=== PATIENT | female | born 1990 | race Caucasian/White ===

== ENCOUNTER → 2017-02-24 | Outpatient (CLI) | payer BC, OTHER ==
[~2017-02-24] MED LIST: DCS100C PO; HYDR-3720 PO; Ibuprofen PO; PREN1TAB19 PO
--- NOTE | 2017-02-24 14:55 | Diagnostic Imaging Report ---
First trimester OB ultrasound. INDICATION: Dating. FINDINGS: There is a normal-appearing single intrauterine . An embryo is seen with cardiac activity at 156 beats per minute. The crown-rump length is at 10 weeks and 3 days. KHRIS is 09/19/2017. No subchorionic hemorrhage is seen. The left ovary is 2.7 x 2.3 x 2.1 CM. The right ovary is obscured by bowel gas. IMPRESSION: Live single intrauterine . Dictated by: Dictated on workstation # [id number]
== END ==
LOC: RAD 14:03
PROVIDERS: ATTEND Family Medicine
DX: Z34.81 Encounter for supervision of other normal pregnancy, first trimester (principal); Z3A.10 10 weeks gestation of pregnancy
CPT/HCPCS: 76801

== ENCOUNTER → 2017-08-04 | Outpatient (CLI) | payer BC ==
[~2017-08-04] MED LIST changes: +DOCU100C37 PO; +FLUC200T5 PO; +IBUP-1780 PO; +OXYC-465 PO; +PNV1TABL81 PO
== END ==
LOC: LABNPT 12:44
PROVIDERS: ATTEND Obstetrics & Gynecology
DX: O14.03 Mild to moderate pre-eclampsia, third trimester (principal)
CPT/HCPCS: 82570; 84156

== ENCOUNTER 2017-08-14 15:14 | Outpatient (CLI) | payer BC ==
[~2017-08-14] VITALS: Ht 167.6 cm; Wt 107.5 kg
[~2017-08-14 15:14] MED LIST changes: -DOCU100C37 PO; -FLUC200T5 PO; -IBUP-1780 PO; -OXYC-465 PO; -PNV1TABL81 PO
[2017-08-14 15:20] VITALS: BP 138/78
[2017-08-14 15:58] LABS: BASOPHILS % (AUTO) 0 % (0-10); EOSINOPHILS % (AUTO) 0 % (0-10); HEMATOCRIT 37 % (35-52); HEMOGLOBIN 12.9 G/DL (11.5-16.0); LYMPHOCYTES # (AUTO) 1.3 X 10^3 (1.0-4.0); LYMPHOCYTES % (AUTO) 13 % (12-44); MEAN CORPUSCULAR HEMOGLOBIN 28 PG (25-34); MEAN CORPUSCULAR HGB CONC 35 G/DL (32-36); MEAN CORPUSCULAR VOLUME 81 FL (80-99); MEAN PLATELET VOLUME 10.3 FL (7.4-10.4); MONOCYTES # (AUTO) 0.8 X 10^3 (0.0-1.0); MONOCYTES % (AUTO) 9 % (0-12); NEUTROPHILS # (AUTO) 7.4 X 10^3 (1.8-7.8); NEUTROPHILS % (AUTO) 78 % (42-75); PLATELET COUNT 254 10^3/uL (130-400); RED BLOOD COUNT 4.58 10^6/uL (4.35-5.85); RED CELL DISTRIBUTION WIDTH 14.1 % (10.0-14.5); WHITE BLOOD COUNT 9.5 10^3/uL (4.3-11.0)
[2017-08-14 16:00] VITALS: BP 133/82
[2017-08-14 16:17] LABS: ALANINE AMINOTRANSFERASE 15 U/L (0-55); ALBUMIN 3.1 GM/DL (3.2-4.5); ALKALINE PHOSPHATASE 221 U/L (40-136); BILIRUBIN,TOTAL 0.4 MG/DL (0.1-1.0); BUN/CREATININE RATIO 10; CALCIUM 8.5 MG/DL (8.5-10.1); CARBON DIOXIDE 22 MMOL/L (21-32); CHLORIDE 108 MMOL/L (98-107); CREATININE SERUM 0.73 MG/DL (0.60-1.30); GFR ESTIMATED > 60; GLUCOSE 88 MG/DL (70-105); POTASSIUM 3.6 MMOL/L (3.6-5.0); SODIUM 139 MMOL/L (135-145); TOTAL PROTEIN 6.3 GM/DL (6.4-8.2)
[2017-08-14 16:30] VITALS: BP 130/76
[2017-08-14 16:30] LABS: BAND NEUTROPHILS 3 %; BASOPHILS % (MANUAL) 0 %; EOSINOPHILS % (MANUAL) 1 %; LYMPHOCYTES % (MANUAL) 18 %; METAMYELOCYTES % 1 %; MONOCYTES % (MANUAL) 4 %; NEUTROPHILS % (MANUAL) 73 %
[2017-08-14 16:31] LABS: RBC MORPH NORMAL
--- NOTE | 2017-08-17 11:57 | Physician Query-Final Dx ---
KETAN MAY 08/17/17 1157: Clinic Account Progress/Dx Physician Query: Please give diagnosis Date of Service August 14, 2017 at 15:14 TORO LOPEZ MD 08/17/17 1315: Clinic Account Progress/Dx DIAGNOSIS: Diagnosis KRISTEN KETAN MAY August 17, 2017 11:57 TORO LOPEZ MD August 17, 2017 13:15
== END 2017-08-14 16:50 | disposition home or self-care (01) ==
LOC: WSo 15:14 → LDRP 15:15 → 3RD 16:11 → LDRP 16:11 → WSo 16:50
PROVIDERS: ATTEND Obstetrics & Gynecology
DX: O13.3 Gestational [pregnancy-induced] hypertension without significant proteinuria, third trimester (principal); Z3A.34 34 weeks gestation of pregnancy
CPT/HCPCS: 36415; 80053; 82570; 83615; 84156; 84550; 85007; 85027; 99213

== ENCOUNTER → 2017-08-17 | Outpatient (CLI) | payer BC ==
[~2017-08-17] MED LIST changes: +DOCU100C37 PO; +FLUC200T5 PO; +IBUP-1780 PO; +OXYC-465 PO; +PNV1TABL81 PO
== END ==
LOC: LABNPT 12:17
PROVIDERS: ATTEND Obstetrics & Gynecology
DX: O14.03 Mild to moderate pre-eclampsia, third trimester (principal)
CPT/HCPCS: 82570; 84156

== ENCOUNTER → 2017-08-24 | Outpatient (CLI) | payer BC | LOC: LABNPT 11:13 | PROVIDERS: ATTEND Obstetrics & Gynecology | DX: O14.03 Mild to moderate pre-eclampsia, third trimester (principal) | CPT/HCPCS: 82570; 84156 ==

== ENCOUNTER 2017-08-28 05:39 | Outpatient (CLI) | payer BC ==
[~2017-08-28] VITALS: Ht 167.6 cm; Wt 107.5 kg
[~2017-08-28 05:39] MED LIST changes: -DOCU100C37 PO; -FLUC200T5 PO; -IBUP-1780 PO; -OXYC-465 PO; -PNV1TABL81 PO
[2017-08-28] MEDS ORDERED: FLUC200T5 PO (14:22)
[2017-08-28] MEDS ORDERED: PNV1TABL81 PO (14:22)
== END 2017-08-28 14:38 ==
LOC: PREOP 05:39
PROVIDERS: ATTEND Obstetrics & Gynecology
DX: Z01.818 Encounter for other preprocedural examination (principal); O34.211 Maternal care for low transverse scar from previous cesarean delivery; O99.013 Anemia complicating pregnancy, third trimester; D64.9 Anemia, unspecified

== ENCOUNTER → 2017-09-01 | Outpatient (CLI) | payer BC ==
[~2017-09-01] MED LIST changes: +DOCU100C37 PO; +FLUC200T5 PO; +IBUP-1780 PO; +OXYC-465 PO; +PNV1TABL81 PO
== END ==
LOC: LABNPT 11:08
PROVIDERS: ATTEND Obstetrics & Gynecology
DX: O14.03 Mild to moderate pre-eclampsia, third trimester (principal)
CPT/HCPCS: 82570; 84156

== ENCOUNTER 2017-09-02 06:10 | Inpatient (IN) | payer BC ==
[2017-09-02] VITALS (8 sets, daily range): BP systolic 128–164; BP diastolic 84–104
[~2017-09-02] VITALS: Ht 167.6 cm; Wt 109.3 kg
[~2017-09-02 06:10] MED LIST changes: +CITRIC ACID/SOB CIT (BICITRA) 30 ML UDC ONE; +CLINDAMYCIN 900 MG/50 ML IVPB 50 ML IV ONE; -DOCU100C37 PO; -IBUP-1780 PO; +METOCLOPRAMIDE INJ 10 MG/2 ML (REGLAN) ONE; -OXYC-465 PO; +raNItidine 50 MG/2 ML INJ (ZANTAC) ONE
--- OUTSIDE RECORDS SUMMARY | 2017-09-02 06:15 | XMS REPORT | Continuity of Care Document ---
Author Author [facility] Organization [facility] Address Unknown Phone Unavailable Allergies Active Description Code Type Severity Reaction Onset Reported/Identified Relationship to Patient Clinical Status Yes cefaclor [id number] Drug Allergy Unknown RASH 08/14/2017 Medications There is no data. 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81 ENCOUNTER FOR SUPRVSN OF NORMAL PREGNANC 03/12/2017 KALEIGH NUÑEZ MD, Ot Z3A.10 10 WEEKS GESTATION OF 07/31/2017 Ot 642.43 MILD/NOS PREECLAMP-ANTEP 07/31/2017 KALEIGH NUÑEZ MD, Ot Z34.81 ENCOUNTER FOR SUPRVSN OF NORMAL PREGNANC 07/31/2017 KALEIGH NUÑEZ MD, Ot Z3A.10 10 WEEKS GESTATION OF 07/31/2017 TORO LOPEZ MD, Ot O47.03 FALSE LABOR BEFORE 37 COMPLETED WEEKS OF 07/31/2017 TORO LOPEZ MD, Ot3A.33 33 WEEKS GESTATION OF 08/05/2017 TORO LOPEZ MD, Ot O47.03 FALSE LABOR BEFORE 37 COMPLETED WEEKS OF 08/05/2017 TORO LOPEZ MD, Ot3A.33 33 WEEKS GESTATION OF 08/06/2017 TORO LOPEZ MD, Ot O14.03 MILD TO MODERATE PRE-ECLAMPSIA, THIRD TR 08/07/2017 TORO LOPEZ MD, Ot O14.03 MILD TO MODERATE PRE-ECLAMPSIA, THIRD TR 08/18/2017 TORO LOPEZ MD, Ot O13.3 GESTATIONAL HTN W/O SIGNIFICANT PROTEINU 08/18/2017 TORO LOPEZ MD, Ot ZMattie.34 34 WEEKS GESTATION OF 08/18/2017 TORO LOPEZ MD, Ot O14.03 MILD TO MODERATE PRE-ECLAMPSIA, THIRD TR 08/19/2017 TORO LOPEZ MD, Ot O14.03 MILD TO MODERATE PRE-ECLAMPSIA, THIRD TR 08/19/2017 TORO LOPEZ MD, Ot O14.03 MILD TO MODERATE PRE-ECLAMPSIA, THIRD TR 08/20/2017 TORO LOPEZ MD, Ot O13.3 GESTATIONAL HTN W/O SIGNIFICANT PROTEINU 08/20/2017 TORO LOPEZ MD, Ot.34 34 WEEKS GESTATION OF 08/26/2017 TORO LOPEZ MD, Ot O14.03 MILD TO MODERATE PRE-ECLAMPSIA, THIRD TR Procedures Code Description Performed By Performed On 73.4 MEDICAL INDUCTION LABOR 09/20/2013 74.1 LOW CERVICAL 09/20/2013 Results Test Result Range CULTURE, GENITAL - 02/18/17 17:58 CULTURE, GENITAL SEE NOTE NRG SUREPATH PAP RFX HPV mRNA E6/E7 - 02/18/17 17:58 CLINICAL INFORMATION: NRG LMP: NRG PREV. PAP: NRG PREV. BX: NRG SOURCE: NRG STATEMENT OF ADEQUACY: NRG INTERPRETATION/RESULT: NRG SUPERVISOR UNDERWRITING CLERKS: NRG INFECTION: NRG Complete urinalysis with reflex to culture - 07/31/17 14:00 Urine color determination YELLOW NRG Urine clarity determination SLIGHTLY CLOUDY NRG Urine pH measurement by test strip 6 5-9 Specific gravity of urine by test strip 1.005 1.016- 1.022 Urine protein assay by test strip, semi-quantitative NEGATIVE NEGATIVE Urine glucose detection by automated test strip NEGATIVE NEGATIVE Erythrocytes detection in urine sediment by light microscopy 1+ NEGATIVE Urine ketones detection by automated test strip NEGATIVE NEGATIVE Urine nitrite detection by test strip NEGATIVE NEGATIVE Urine total bilirubin detection by test strip NEGATIVE NEGATIVE Urine urobilinogen measurement by automated test strip (mass/volume) NORMAL NORMAL Urine leukocyte esterase detection by dipstick 3+ NEGATIVE Automated urine sediment erythrocyte count by microscopy (number/high power field) [HPF] NRG Automated urine sediment leukocyte count by microscopy (number/high power field ) [HPF] NRG Bacteria detection in urine sediment by light microscopy MODERATE NRG Crystals detection in urine sediment by light microscopy NONE NRG Casts detection in urine sediment by light microscopy NONE NRG Mucus detection in urine sediment by light microscopy NEGATIVE NRG Complete urinalysis with reflex to culture NO NRG Bacterial urine culture - 07/31/17 14:00 Bacterial urine culture [id number] NRG COLONY COUNT 10,000/ML - 100,000/ML NRG FTX;REPORTABLE PLUS, NRG FREE TEXT ENTRY 2 MIXED GRAM POSITIVES <10,000/ML NRG Complete urinalysis with reflex to culture - 07/31/17 15:20 Urine color determination YELLOW NRG Urine clarity determination CLEAR NRG Urine pH measurement by test strip 6 5-9 Specific gravity of urine by test strip 1.020 1.016- 1.022 Urine protein assay by test strip, semi-quantitative NEGATIVE NEGATIVE Urine glucose detection by automated test strip NEGATIVE NEGATIVE Erythrocytes detection in urine sediment by light microscopy NEGATIVE NEGATIVE Urine ketones detection by automated test strip NEGATIVE NEGATIVE Urine nitrite detection by test strip NEGATIVE NEGATIVE Urine total bilirubin detection by test strip NEGATIVE NEGATIVE Urine urobilinogen measurement by automated test strip (mass/volume) NORMAL NORMAL Urine leukocyte esterase detection by dipstick NEGATIVE NEGATIVE Automated urine sediment erythrocyte count by microscopy (number/high power field) NONE NRG Automated urine sediment leukocyte count by microscopy (number/high power field ) NONE NRG Bacteria detection in urine sediment by light microscopy NONE NRG Squamous epithelial cells detection in urine sediment by light microscopy RARE NRG Crystals detection in urine sediment by light microscopy NONE NRG Casts detection in urine sediment by light microscopy NONE NRG Mucus detection in urine sediment by light microscopy NEGATIVE NRG Complete urinalysis with reflex to culture NO NRG Urine protein/creatinine mass ratio - 08/04/17 12:00 Urine protein measurement (mass/volume) 18 mg/dL 6-12 Urine creatinine measurement (mass/volume) 153 mg/dL 30- 125 Urine protein/creatinine mass ratio 0.12 NRG Urine protein/creatinine mass ratio - 08/14/17 15:40 Urine protein measurement (mass/volume) 14 mg/dL 6-12 Urine creatinine measurement (mass/volume) 94 mg/dL 30- 125 Urine protein/creatinine mass ratio 0.15 NRG Blood CBC with ordered manual differential panel - 08/14/17 15:49 Blood leukocytes automated count (number/volume) 9.5 10*3/uL 4.3-11.0 Blood erythrocytes automated count (number/volume) 4.58 10*6/uL 4.35-5.85 Venous blood hemoglobin measurement (mass/volume) 12.9 g/dL 11.5-16.0 Blood hematocrit (volume fraction) 37 % 35-52 Automated erythrocyte mean corpuscular volume 81 [foz_us] 80-99 Automated erythrocyte mean corpuscular hemoglobin (mass per erythrocyte) 28 pg 25-34 Automated erythrocyte mean corpuscular hemoglobin concentration measurement ( mass/volume) 35 g/dL 32-36 Automated erythrocyte distribution width ratio 14.1 % 10.0-14.5 Automated blood platelet count (count/volume) 254 10*3/uL 130-400 Automated blood platelet mean volume measurement 10.3 [foz_us] 7.4-10.4 Automated blood neutrophils/100 leukocytes 78 % 42-75 Automated blood lymphocytes/100 leukocytes 13 % 12-44 Blood monocytes/100 leukocytes 4 % NRG Automated blood eosinophils/100 leukocytes 0 % 0-10 Automated blood basophils/100 leukocytes 0 % 0-10 Blood neutrophils automated count (number/volume) 7.4 10*3 1.8-7.8 Blood lymphocytes automated count (number/volume) 1.3 10*3 1.0-4.0 Blood monocytes automated count (number/volume) 0.8 10*3 0.0-1.0 Automated eosinophil count 0.0 10*3/uL 0.0-0.3 Automated blood basophil count (count/volume) 0.0 10*3/uL 0.0-0.1 Manual blood segmented neutrophils/100 leukocytes 73 % NRG Blood band neutrophils/100 leukocytes 3 % NRG Manual blood lymphocytes/100 leukocytes 18 % NRG Manual eosinophils/100 leukocytes in nose 1 % NRG Manual blood basophils/100 leukocytes 0 % NRG Blood erythrocyte morphology finding identification NORMAL NRG Manual blood metamyelocytes/100 leukocytes 1 % NRG Comprehensive metabolic panel - 08/14/17 15:49 Serum or plasma sodium measurement (moles/volume) 139 mmol/L 135-145 Serum or plasma potassium measurement (moles/volume) 3.6 mmol/L 3.6-5.0 Serum or plasma chloride measurement (moles/volume) 108 mmol/L 98-107 Carbon dioxide 22 mmol/L 21-32 Serum or plasma anion gap determination (moles/volume) 9 mmol/L 5-14 Serum or plasma urea nitrogen measurement (mass/volume) 7 mg/dL 7-18 Serum or plasma creatinine measurement (mass/volume) 0.73 mg/dL 0.60-1.30 Serum or plasma urea nitrogen/creatinine mass ratio 10 NRG Serum or plasma creatinine measurement with calculation of estimated glomerular filtration rate > NRG Serum or plasma glucose measurement (mass/volume) 88 mg/dL 70-105 Serum or plasma calcium measurement (mass/volume) 8.5 mg/dL 8.5-10.1 Serum or plasma total bilirubin measurement (mass/volume) 0.4 mg/dL 0.1-1.0 Serum or plasma alkaline phosphatase measurement (enzymatic activity/volume) 221 U/L 40-136 Serum or plasma aspartate aminotransferase measurement (enzymatic activity/ volume) 14 U/L 5-34 Serum or plasma alanine aminotransferase measurement (enzymatic activity/volume ) 15 U/L 0-55 Serum or plasma protein measurement (mass/volume) 6.3 g/dL 6.4-8.2 Serum or plasma albumin measurement (mass/volume) 3.1 g/dL 3.2-4.5 Serum or plasma uric acid measurement (mass/volume) - 08/14/17 15:49 Serum or plasma uric acid measurement (mass/volume) 4.0 mg/dL 2.6-7.2 Lactate dehydrogenase 1 [enzymatic activity/volume] in serum or plasma - 15:49 Lactate dehydrogenase 1 [enzymatic activity/volume] in serum or plasma 199 U/L 125-220 Urine protein/creatinine mass ratio - 08/17/17 12:17 Urine protein measurement (mass/volume) 24 mg/dL 6-12 Urine creatinine measurement (mass/volume) 156 mg/dL 30- 125 Urine protein/creatinine mass ratio 0.16 NRG Urine protein/creatinine mass ratio - 08/24/17 11:13 Urine protein measurement (mass/volume) 33 mg/dL 6-12 Urine creatinine measurement (mass/volume) 197 mg/dL 30- 125 Urine protein/creatinine mass ratio 0.17 NRG Encounters ACCT No. Visit Date/Time Discharge Status Pt. Type Provider Facility Loc./Unit Complaint [id number] 2017 11:13:00 2017 23:59:59 CRYS Outpatient TORO LOPEZ MD [facility] [id number] 08/17/2017 12:17:00 08/17/2017 23:59:59 CRYS Outpatient TORO LOPEZ MD [id number] 08/14/2017 15:14:00 08/14/2017 16:50:00 JAMEE Outpatient TORO LOPEZ MD [facility] ASSESS FOR PREECLAMPSIA [id number] 08/04/2017 12:44:00 08/04/2017 23:59:59 TORO Flores MD [facility] [id number] 07/31/2017 13:52:00 07/31/2017 16:05:00 TORO Gleason MD [facility] RULE OUT LABOR [id number] 02/24/2017 14:03:00 02/24/2017 23:59:59 CLS Outpatient KALEIGH NUÑEZ MD [facility] RAD DATES [id number] 09/09/2013 11:36:00 09/22/2013 12:20:00 DIS Inpatient TORO LOPEZ MD [facility] LDRP PRECLAMPSIA [id number] 08/30/2013 11:15:00 08/31/2013 09:50:00 DIS Inpatient TORO LOPEZ MD [facility] WS OB EVAL TO IN , CRAMPING, SWELLING,VOMITING [id number] 07/31/2013 09:31:00 07/31/2013 10:43:00 DIS Outpatient TORO LOPEZ MD [facility] WSo BLEEDING [id number] 09/02/2013 10:40:00 Document Registration [id number] 02/18/2017 15:30:00 02/18/2017 23:59:59 CLS Outpatient MAGALI MOSQUEDA [facility] [id number] 02/18/2017 15:30:00 Document Registration
[2017-09-02] MEDS ORDERED: LACTATED RINGERS 1,000 ML IV PRN (06:26)
[2017-09-02] MEDS ORDERED: CLINDAMYCIN 900 MG/50 ML IVPB 50 ML IV ONE ×2 (06:30→07:15)
[2017-09-02] MEDS ORDERED: METOCLOPRAMIDE INJ 10 MG/2 ML (REGLAN) IV ONE (06:30)
[2017-09-02] MEDS ORDERED: CITRIC ACID/SOB CIT (BICITRA) 30 ML UDC PO ONE (06:30)
[2017-09-02] MEDS ORDERED: raNItidine 50 MG/2 ML INJ (ZANTAC) IV ONE (06:30)
[2017-09-02 06:54] LABS: BASOPHILS % (AUTO) 0 % (0-10); EOSINOPHILS # (AUTO) 0.1 10^3/uL (0.0-0.3); EOSINOPHILS % (AUTO) 1 % (0-10); HEMATOCRIT 37 % (35-52); HEMOGLOBIN 12.8 G/DL (11.5-16.0); LYMPHOCYTES # (AUTO) 2.2 X 10^3 (1.0-4.0); LYMPHOCYTES % (AUTO) 25 % (12-44); MEAN CORPUSCULAR HEMOGLOBIN 27 PG (25-34); MEAN CORPUSCULAR HGB CONC 34 G/DL (32-36); MEAN CORPUSCULAR VOLUME 79 FL (80-99); MEAN PLATELET VOLUME 10.9 FL (7.4-10.4); MONOCYTES # (AUTO) 0.7 X 10^3 (0.0-1.0); MONOCYTES % (AUTO) 8 % (0-12); NEUTROPHILS # (AUTO) 5.9 X 10^3 (1.8-7.8); NEUTROPHILS % (AUTO) 66 % (42-75); PLATELET COUNT 253 10^3/uL (130-400); RED CELL DISTRIBUTION WIDTH 14.4 % (10.0-14.5); WHITE BLOOD COUNT 8.9 10^3/uL (4.3-11.0)
[2017-09-02] MEDS ORDERED: fentaNYL INJECTION 100 MCG/2 ML AMP ONE (07:00)
[2017-09-02] MEDS ORDERED: CATHETER FLUSH 10 ML SYR IV PRN (07:00)
[2017-09-02] MEDS ORDERED: BUPIVACAINE SPINAL 0.75% (SENSORCAINE) 2 ML AMP ONE (07:05)
[2017-09-02] MEDS ORDERED: LIDOCAINE PF 2% 5 ML (XYLOCAINE) VIAL ONE (07:08)
[2017-09-02] MEDS ORDERED: D5 LR IV SOLUTION 1,000 ML IV SCH (07:10)
[2017-09-02] MEDS ORDERED: TETANUS,DIPTH,PERTUSS P/F (BOOSTRIX) 0.5 ML VIAL IM ONE (07:15)
[2017-09-02] MEDS ORDERED: MEASLES,MUMPS,RUBELLA 1 EA INJ SC ONE (07:15)
[2017-09-02] MEDS ORDERED: MEPERIDINE (DEMEROL) INJ 100 MG/ML IM PRN (07:15)
[2017-09-02] MEDS ORDERED: ONDANSETRON 4 MG/2 ML (SDV) Z0FRAN IVP PRN (07:15)
[2017-09-02] MEDS ORDERED: PROMETHAZINE INJ 25 MG/ML (PHENERGAN) AMP IM PRN (07:15)
--- NOTE | 2017-09-02 07:15 | Progress Note-Pre Operative ---
Pre-Operative Progress Note H&P Reviewed The H&P was reviewed, patient examined and no changes noted. Date Seen by Provider: September 02, 2017 Time Seen by Provider: 07:15 Date H&P Reviewed: September 02, 2017 Time H&P Reviewed: 07:15 Pre-Operative Diagnosis: 37-3/7 weeks' gestation with previous and TORO CHINCHILLA MD September 02, 2017 7:15 am
--- NOTE | 2017-09-02 07:18 | History & Physical ---
History and Physical Date Seen by Provider: September 02, 2017 Time Seen by Provider: 07:15 This patient is a 26-year-old A1 white female with a due date of September 09, 2017 at 37-3/7 weeks gestation. She been followed in clinic for progressively increasing blood pressures. She is admitted now for repeat delivery with PIH at 37-3/7 weeks gestation. She is on the of preeclampsia. Her first was complicated by severe preeclampsia. Her GBS culture was negative. She denies rupture membranes or bleeding. He is having occasional contractions. Allergies are to Ceclor Medications are vitamins and low-dose aspirin daily Medical social surgical obstetric and family histories are per the antepartum record HEENT exam is normal Neck is supple no lymphadenopathy no thyromegaly Abdomen is gravid soft nontender nondistended Extremities show no clubbing or cyanosis. There is no Homans sign. Pelvic exam is deferred Laboratory Tests Test 09/02/17 06:30 Range/Units White Blood Count 8.9 4.3-11.0 10^3/uL Red Blood Count 4.70 4.35-5.85 10^6/uL Hemoglobin 12.8 11.5-16.0 G/DL Hematocrit 37 35-52 % Mean Corpuscular Volume 79 L 80-99 FL Mean Corpuscular Hemoglobin 27 25-34 PG Mean Corpuscular Hemoglobin Concent 34 32-36 G/DL Red Cell Distribution Width 14.4 10.0-14.5 % Platelet Count 253 130-400 10^3/uL Mean Platelet Volume 10.9 H 7.4-10.4 FL Neutrophils (%) (Auto) 66 42-75 % Lymphocytes (%) (Auto) 25 12-44 % Monocytes (%) (Auto) 8 0-12 % Eosinophils (%) (Auto) 1 0-10 % Basophils (%) (Auto) 0 0-10 % Neutrophils # (Auto) 5.9 1.8-7.8 X 10^3 Lymphocytes # (Auto) 2.2 1.0-4.0 X 10^3 Monocytes # (Auto) 0.7 0.0-1.0 X 10^3 Eosinophils # (Auto) 0.1 0.0-0.3 10^3/uL Basophils # (Auto) 0.0 0.0-0.1 10^3/uL Assessment and plan term at 37-3/7 weeks' gestation with previous C- section and with PIH. Patient admitted now for repeat delivery. Surgical risk complication recovering follow-up all been fully discussed. Patient is ready to proceed. 37 3/7 weeks' gestation with previous and PIH Allergies and Home Medications Allergies Coded Allergies: cefaclor (Unverified Allergy, Unknown, RASH, 08/14/17) rash, bruising Home Medications Fluconazole 200 Mg Tablet, 200 MG PO WEEK, (Reported) Pnv No.122/Iron/Folic Acid 1 Each Tablet, 1 EACH PO DAILY, (Reported) Patient Home Medication List Home Medication List Reviewed: Yes Clinical Quality Measures DVT/VTE Risk/Contraindication: Risk Factor Score Per Nursin RFS Level Per Nursing on Admit: 2=Moderate TORO LOPEZ MD September 02, 2017 7:18 am
[2017-09-02] MEDS ORDERED: D5 LR IV SOLUTION 1,000 ML IV ONE (07:20)
[2017-09-02] MEDS: KETOROLAC 30 MG/ML VIAL IVP SCH ×3 (09:48→22:08)
[2017-09-02] MEDS: oxyCODONE/APAP 5/325MG (PERCOCET 5) TABLET PO PRN ×4 (09:53→23:55)
[2017-09-02] MEDS: OXYTOCIN/NORMAL SALINE 500 ML IV SCH ×2 (10:13→11:41)
[2017-09-02] MEDS: DOCUSATE SODIUM 100 MG (COLACE) CAP PO SCH ×2 (10:13→19:45)
[2017-09-02] MEDS ORDERED: diphenhydrAMINE 50 MG/ML INJ (BENADRYL) IV PRN (13:15)
[2017-09-02] MEDS ORDERED: ONDANSETRON 4 MG/2 ML (SDV) Z0FRAN IV PRN (13:15)
[2017-09-02] MEDS ORDERED: NALOXONE 0.4 MG/ML 1 ML (NARCAN) VIAL IV PRN (13:15)
--- NOTE | 2017-09-02 15:32 | OPERATIVE REPORT ---
DATE OF SERVICE: 09/02/2017 PREOPERATIVE DIAGNOSES: A 38 and 3/7 weeks gestation with PIH and previous . POSTOPERATIVE DIAGNOSES: A 38 and 3/7 weeks gestation with PIH and previous . OPERATIVE PROCEDURE: Repeat low transverse delivery of a viable female with Apgars of 8 and 9 at 1 and 5 minutes respectively, weight of 6 pounds 6 ounces. Cord arterial blood pH was 7.29 and a time of 07:47. OPERATIVE DESCRIPTION: With the patient in the supine position under satisfactory spinal anesthesia, she was prepped and draped in the usual fashion for abdominal surgery. A repeat Pfannenstiel incision was made through the skin with a scalpel. The patient's abdomen entered in the usual manner. Bladder retractor placed into position and a clean scalpel used to make a 4 cm hysterotomy incision transversely across loading segment. Copious clear fluid was released on amniotomy. De La Cruz forceps were applied to facilitate delivery of a vigorous viable female from the uterine incision after the incision had been extended bluntly. The infant was bulb suctioned on delivery of the head and again on completion of delivery. Umbilical cord was doubly clamped and cut and the passed to Janine Paredes, the pediatric nurse in attendance for delivery. Cord bloods were obtained. The placenta delivered spontaneously Chávez. It was somewhat small and atretic with a very small short umbilical cord, but otherwise appeared normal. The uterus was exteriorized. The interior wiped clean with a wet laparotomy sponge. Uterine incision closed with a running locked suture of 2-0 Vicryl. Hemostasis was complete. The uterus was returned to the abdominal cavity. There were some filmy adhesions to the posterior surface of the uterus involving omentum, bowel and the ovary. These were taken free and were completely hemostatic. With the uterus returned in situ and sponge and needle counts correct and hemostasis assured, the anterior parietal peritoneum was closed with a running suture of 2-0 Vicryl. The rectus muscles were closed with that suture as well. Rectus fascia was closed with two sutures of 2-0 Vicryl, subcutaneous tissue was closed with 2-0 Vicryl and the skin was stapled. Sponge and needle counts were correct at the end of procedure. Estimated blood loss for procedure was around 500 mL. The patient tolerated the procedure well and was transferred to the recovery room in stable condition. The infant had been taken stable to the full term nursery in the care of Janine Paredes. Job ID: [id number] DocumentID: [id number] Dictated Date: 09/02/2017 08:09:59 Patient Services Clerk Date: 09/02/2017 15:31:55 Dictated By: TORO LOPEZ MD
[2017-09-03 04:05] VITALS: BP 140/97
[2017-09-03] MEDS: KETOROLAC 30 MG/ML VIAL IVP SCH (04:10)
--- NOTE | 2017-09-03 08:04 | Progress Note-Standard ---
Standard Progress Note Progress Notes/Assess & Plan Date Seen by Provider: September 03, 2017 Time Seen by Provider: 08:02 Progress/Assessment & Plan This patient is without complaint except for relatively poor pain control. We discussed pain management and we'll increase the dose of the narcotic and the Percocet. She is ambulating, voiding, tolerating by mouth well, denies chest pain, denies shortness of breath, denies headache, denies nausea vomiting. Vital Signs Date Time Temp Pulse Resp B/P (MAP) Pulse Ox O2 Delivery O2 Flow Rate FiO2 09/03/17 04:05 97.7 92 18 140/97 (111) 97 09/02/17 23:55 97.2 79 18 143/101 (115) 97 09/02/17 19:40 97.7 80 18 143/102 (116) 98 09/02/17 16:34 98.4 82 18 136/101 (113) 97 Room Air 09/02/17 12:45 98.8 84 18 128/86 (100) 97 Room Air 09/02/17 09:54 98.6 71 18 143/96 (112) 99 Room Air I & O 09/03/17 07:00 Intake Total 3450 ml Output Total 2450 ml Balance 1000 ml Vital signs are stable. Patient is slightly elevated but acceptable at this point. Patient is afebrile. The abdomen is benign. Patient is nursing and the surgical incision was not examined Extremities show clubbing cyanosis. There is no Homans sign. There is fairly notable pretibial pitting edema but that is not new for this patient. Assessment and plan day number 1/postoperative day number 1 status post repeat doing well. Blood pressures remained slightly elevated but again are acceptable at this point. We have adjusted her pain medication and anticipate better pain control. Plan is for routine convalescence care today and likely discharge home tomorrow TORO LOPEZ MD September 03, 2017 8:04 am
--- NOTE | 2017-09-03 08:44 | Anesthesia-Regional Post-Op ---
Regional Patient Condition Mental Status: Alert, Oriented x3 Circulation: Same as Pre-Op Headache: Absent Sensation: Full Recovery Motor Block: Absent Post Op Complications Complications None Follow Up Care/Instructions Patient Instructions None needed. Anesthesia/Patient Condition Patient is doing well, no complaints, stable vital signs, no apparent adverse anesthesia problems. No complications reported per nursing. ALYSSA ZIMMERMAN CRNA September 03, 2017 08:44
[2017-09-03 09:10] VITALS: BP 140/102
[2017-09-03] MEDS: IBUPROFEN 800 MG (MOTRIN) TAB PO SCH ×3 (09:18→20:12)
[2017-09-03] MEDS: DOCUSATE SODIUM 100 MG (COLACE) CAP PO SCH ×2 (09:19→20:10)
[2017-09-03] MEDS: oxyCODONE/APAP 10/325MG (PERCOCET 10) TABLET PO PRN ×3 (09:20→21:33)
[2017-09-03 14:49] VITALS: BP 142/96
[2017-09-03 20:10] VITALS: BP 149/102
[2017-09-04 03:20] VITALS: BP 136/94
[2017-09-04] MEDS: oxyCODONE/APAP 10/325MG (PERCOCET 10) TABLET PO PRN ×2 (03:21→08:57)
[2017-09-04] MEDS: IBUPROFEN 800 MG (MOTRIN) TAB PO SCH ×2 (03:21→08:57)
[2017-09-04] MEDS ORDERED: IBUP-1780 PO (07:04)
[2017-09-04] MEDS ORDERED: OXYC-465 PO (07:04)
[2017-09-04] MEDS ORDERED: DOCU100C37 PO (07:04)
--- NOTE | 2017-09-04 07:06 | Discharge Instructions ---
Discharge Instructions Discharge Medications New, Converted or Re-Newed RX: RX on Chart Patient Instructions Patient Instructions: As directed Return to The Hospital For: As directed Activity & Diet Discharge Diet: No Restrictions Activity as Tolerated: No Orders-Post D/C & Referrals Follow Up Appt: RTC 1 week for incision check. Call to make follow up appt. for patient in 4 weeks. Wound Care: Remove evelyne, apply benzoin and steri strips. Activity Per routine post instructions. Please call in RX to patient pharmacy. Diet as tolerated Patient may shower or tub bathe as desired. Continue home meds TORO LOPEZ MD Sep 04, 2017 7:06 am
--- NOTE | 2017-09-04 07:08 | Progress Note-Standard ---
Standard Progress Note Progress Notes/Assess & Plan Date Seen by Provider: Sep 04, 2017 Time Seen by Provider: 07:07 Progress/Assessment & Plan This patient is without complaint except for relatively poor pain control. We discussed pain management and we'll increase the dose of the narcotic and the Percocet. She is ambulating, voiding, tolerating by mouth well, denies chest pain, denies shortness of breath, denies headache, denies nausea vomiting. Vital Signs Date Time Temp Pulse Resp B/P (MAP) Pulse Ox O2 Delivery O2 Flow Rate FiO2 09/03/17 04:05 97.7 92 18 140/97 (111) 97 09/02/17 23:55 97.2 79 18 143/101 (115) 97 09/02/17 19:40 97.7 80 18 143/102 (116) 98 09/02/17 16:34 98.4 82 18 136/101 (113) 97 Room Air 09/02/17 12:45 98.8 84 18 128/86 (100) 97 Room Air 09/02/17 09:54 98.6 71 18 143/96 (112) 99 Room Air I & O 09/03/17 07:00 Intake Total 3450 ml Output Total 2450 ml Balance 1000 ml Vital signs are stable. Patient is slightly elevated but acceptable at this point. Patient is afebrile. The abdomen is benign. Patient is nursing and the surgical incision was not examined Extremities show clubbing cyanosis. There is no Homans sign. There is fairly notable pretibial pitting edema but that is not new for this patient. Assessment and plan day number 1/postoperative day number 1 status post repeat doing well. Blood pressures remained slightly elevated but again are acceptable at this point. We have adjusted her pain medication and anticipate better pain control. Plan is for routine convalescence care today and likely discharge home tomorrow September 04, 2017 Patient without complaint she is ambulating, voiding, tolerating by mouth well, has good pain control. Patient is requesting discharge home. Vital Signs Date Time Temp Pulse Resp B/P (MAP) Pulse Ox O2 Delivery O2 Flow Rate FiO2 09/04/17 03:20 97.6 83 18 136/94 (108) 98 Room Air 09/03/17 20:10 97.6 81 18 149/102 (118) 99 Room Air 09/03/17 14:49 85.0 85 18 142/96 (111) 98 Room Air 09/03/17 09:10 98.4 100 18 140/102 (115) 98 Room Air Vital signs are stable. Patient afebrile. The abdomen is benign. The surgical incision is clean dry and intact. Extremities show no clubbing or cyanosis. There is no Homans sign. The pretibial pitting edema as notable stable and not abnormal. Assessment and plan postoperative day number 2 status post repeat doing well. Plan is for discharge home with follow-up in clinic Final Diagnosis Repeat delivery TORO LOPEZ MD Sep 04, 2017 7:08 am
[2017-09-04 08:57] VITALS: BP 138/91
[2017-09-04] MEDS: DOCUSATE SODIUM 100 MG (COLACE) CAP PO SCH (08:57)
[2017-09-04] MEDS ORDERED: TETANUS,DIPTH,PERTUSS P/F (BOOSTRIX) 0.5 ML VIAL IM ONE (10:59)
== END 2017-09-04 11:55 | disposition home or self-care (01) | DRG 766 ==
LOC: LDRP 06:10
PROVIDERS: ADMIT Obstetrics & Gynecology; ATTEND Obstetrics & Gynecology
PROC: 10D00Z1 Extraction of Products of Conception, Low, Open Approach (ICD-10-PCS; principal; 2017-09-02 07:22)
DX: O13.4 Gestational [pregnancy-induced] hypertension without significant proteinuria, complicating childbirth (principal); O34.211 Maternal care for low transverse scar from previous cesarean delivery; Z37.0 Single live birth; Z3A.28 28 weeks gestation of pregnancy; Z23 Encounter for immunization
CPT/HCPCS: 36415; 82570; 84156; 85025; 86850; 86900; 86901; 88307; 90715

== ENCOUNTER 2018-02-27 18:20 | Emergency (ER) | payer BC ==
[~2018-02-27] VITALS: Ht 165.1 cm; Wt 95.3 kg
[~2018-02-27 18:20] MED LIST changes: -CITRIC ACID/SOB CIT (BICITRA) 30 ML UDC ONE; -CLINDAMYCIN 900 MG/50 ML IVPB 50 ML IV ONE; +DOCU100C37 PO; +IBUP-1780 PO; -METOCLOPRAMIDE INJ 10 MG/2 ML (REGLAN) ONE; +OXYC-465 PO; -raNItidine 50 MG/2 ML INJ (ZANTAC) ONE
--- OUTSIDE RECORDS SUMMARY | 2018-02-27 18:54 | XMS REPORT ---
Author Author KALEIGH NUÑEZ Organization [facility] Address [address] [place] [address] Care Team Providers Care Fact Checker Name Role Phone KALEIGH NUÑEZ Unavailable PROBLEMS Unknown Problems ALLERGIES No Information ENCOUNTERS Encounter Location Date Diagnosis [facility] [id number] [place] [address] [phone][address] [phone] Mar, 15 weeks gestation of Z3A.15 [place] [address] [place] [id number] [place] [address] [phone]- [phone] Feb, [place] [address] [address] [id number] [place] [address] [phone]- [phone] Feb, Normal in multigravida Z34.80 [facility] [id number] [place] [address] [phone]- [phone] Feb, [facility] [id number] [place] [address] [phone]- [phone] Feb, [facility] [id number], [place] [address] Feb, [facility] [id number] [place] [address] [phone]- [phone] Nov, IMMUNIZATIONS No Known Immunizations SOCIAL HISTORY Never Assessed REASON FOR VISIT PLAN OF CARE VITAL SIGNS MEDICATIONS No Known Medications RESULTS No Results PROCEDURES No Known procedures INSTRUCTIONS MEDICATIONS ADMINISTERED No Known Medications MEDICAL (GENERAL) HISTORY Type Description Date Surgical History 09/2013
--- OUTSIDE RECORDS SUMMARY | 2018-02-27 18:54 | XMS REPORT ---
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, Active Insect stings anaphylaxis Non Drug Allergy Mar, Active ENCOUNTERS Encounter Location Date Diagnosis [place] [address] [phone] Mar, 15 weeks gestation of Z3A.15 [place] [address] [place] [id number] [place] [address] [phone] Feb, [place] [address] [place] [id number] [place] [address] [phone]- [phone] Feb, Normal in multigravida Z34.80 [place] [id number] [place] [address] [phone]- [phone] 14 Feb, 2017 [place] [address] [id number] [place] [address] [phone] Feb, [place] [address] [place] [id number] [place] [address] [phone] Feb, [place] [address] [place] [address] [id number] [place] [address] [phone]- [phone] Nov, IMMUNIZATIONS No Known Immunizations SOCIAL HISTORY Never Assessed REASON FOR VISIT OB f/u - 4 wk STeposte CCMA , pt states she has been getting headaches more frequently PLAN OF CARE Activity Details Follow Up 4 Weeks Reason: VITAL SIGNS Height 65.5 in 2017-03-18 Weight 216.4 lbs 2017-03-18 Temperature 98.1 degrees Fahrenheit 2017-03-18 Heart Rate 108 bpm 2017-03-18 Respiratory Rate 20 2017-03-18 BMI 35.463 kg/m2 2017-03-18 Blood pressure systolic 130 mmHg 2017-03-18 Blood pressure diastolic 72 mmHg 2017-03-18 MEDICATIONS Medication Instructions Dosage Frequency Start Date End Date Duration Status Vitamin and Mineral 28-0.8 MG Active RESULTS Name Result Date Reference Range UA OB DIP (IN HOUSE) 2017-03-18 Glucose Negative Protein Negative PROCEDURES Procedure Date Ordered Result Body Site URINE-NO MICRO Mar 18, 2017 INSTRUCTIONS MEDICATIONS ADMINISTERED No Known Medications MEDICAL (GENERAL) HISTORY Type Description Date Surgical History 09/2013
--- OUTSIDE RECORDS SUMMARY | 2018-02-27 18:55 | XMS REPORT ---
Author Author KALEIGH NUÑEZ Organization [facility] Address [address] [place] [address] Care Team Providers Care General Farmworker Name Role Phone KALEIGH NUÑEZ Unavailable PROBLEMS Unknown Problems ALLERGIES No Information ENCOUNTERS Encounter Location Date Diagnosis [facility] [id number] [place] [address] [phone]- [phone] Mar, 15 weeks gestation of Z3A.15 [place] [address] [place] [id number] [place] [address] [phone] Feb, [place] [address] [place] [id number] [place] [address] [phone] Feb, Normal in multigravida Z34.80 [facility] [address] [id number] [place] [address] [phone] Feb, [facility] [id number] [place] [address] [phone] Feb, [facility] [address], [place] [address] Feb, [facility] [address] [id number] [place] [address] [phone] Nov, IMMUNIZATIONS No Known Immunizations SOCIAL HISTORY Never Assessed REASON FOR VISIT PLAN OF CARE VITAL SIGNS MEDICATIONS No Known Medications RESULTS No Results PROCEDURES No Known procedures INSTRUCTIONS MEDICATIONS ADMINISTERED No Known Medications MEDICAL (GENERAL) HISTORY Type Description Date Surgical History 09/2013
--- OUTSIDE RECORDS SUMMARY | 2018-02-27 18:55 | XMS REPORT | Continuity of Care Document ---
Author Author [facility] Organization [facility] Address Unknown Phone Unavailable Allergies Active Description Code Type Severity Reaction Onset Reported/Identified Relationship to Patient Clinical Status Yes cefaclor [id number] Drug Allergy Unknown RASH 08/14/2017 Medications There [...] NEC 09/22/2013 TORO LOPEZ MD Ot V06.1 [id number], COMBINED [ 09/22/2013 TORO LOPEZ MD Ot V06.4 [id number] 09/22/2013 TORO LOPEZ MD Ot V27.0 DELIVER-SINGLE [...] COMPLETED WEEKS OF 08/05/2017 TORO LOPEZ MD, Ot.33 33 WEEKS GESTATION OF 08/06/2017 TORO LOPEZ MD, Ot O14.03 MILD TO MODERATE PRE-ECLAMPSIA, THIRD TR 08/07/2017 TORO LOPEZ MD, Ot O14.03 MILD TO MODERATE PRE-ECLAMPSIA, THIRD TR 08/14/2017 TORO LOPEZ MD, Ot O13.3 GESTATIONAL HTN W/O SIGNIFICANT PROTEINU 08/14/2017 TORO LOPEZ MD, Ot ZMattie.34 34 WEEKS GESTATION OF 08/18/2017 TORO LOPEZ MD, Ot O13.3 GESTATIONAL HTN W/O SIGNIFICANT PROTEINU 08/18/2017 TORO LOPEZ MD, Ot Z3A.34 34 WEEKS GESTATION OF 08/18/2017 TORO LOPEZ MD, Ot O14.03 MILD TO MODERATE PRE-ECLAMPSIA, THIRD TR 08/19/2017 TORO LOPEZ MD, Ot O14.03 MILD TO MODERATE PRE-ECLAMPSIA, THIRD TR 08/19/2017 TORO LOPEZ MD, Ot O14.03 MILD TO MODERATE PRE-ECLAMPSIA, THIRD TR 08/20/2017 TORO LOPEZ MD, Ot O13.3 GESTATIONAL HTN W/O SIGNIFICANT PROTEINU 08/20/2017 TORO LOPEZ MD, Ot Z3A.34 34 WEEKS GESTATION OF 08/26/2017 TORO LOPEZ MD, Ot O14.03 MILD TO MODERATE PRE-ECLAMPSIA, THIRD TR 08/27/2017 TORO LOPEZ MD, Ot O14.03 MILD TO MODERATE PRE-ECLAMPSIA, THIRD TR 09/02/2017 TORO LOPEZ MD, Ot D64.9 ANEMIA, UNSPECIFIED 09/02/2017 TORO LOPEZ MD, Ot O34.211 MATERN CARE FOR LOW TRANSVERSE SCAR FROM 09/02/2017 TORO LOPEZ MD, Ot O99.013 ANEMIA COMPLICATING , THIRD TRI 09/02/2017 TORO LOPEZ MD, Ot Z01.818 ENCOUNTER FOR OTHER PREPROCEDURAL EXAMIN 09/02/2017 TORO LOPEZ MD, Ot O14.03 MILD TO MODERATE PRE-ECLAMPSIA, THIRD TR 09/02/2017 TORO LOPEZ MD, Ot O14.03 MILD TO MODERATE PRE-ECLAMPSIA, THIRD TR 09/04/2017 TORO LOPEZ MD, Ot O14.03 MILD TO MODERATE PRE-ECLAMPSIA, THIRD TR 09/04/2017 TORO LOPEZ MD, Ot O13.4 GESTATNL HTN WITHOUT SIGNIFICANT PROTEIN 09/04/2017 TORO LOPEZ MD, Ot O34.211 MATERN CARE FOR LOW TRANSVERSE SCAR FROM 09/04/2017 TORO LOPEZ MD, Ot Z23 ENCOUNTER FOR IMMUNIZATION 09/04/2017 TORO LOPEZ MD, Ot Z37.0 SINGLE LIVE 09/04/2017 TORO LOPEZ MD, Ot Z3A.28 28 WEEKS GESTATION OF 09/07/2017 TORO LOPEZ MD, Ot O14.03 MILD TO MODERATE PRE-ECLAMPSIA, THIRD TR 09/17/2017 TORO LOPEZ MD, Ot O14.03 MILD TO MODERATE PRE-ECLAMPSIA, THIRD TR Procedures Code Description Performed By Performed On 73.4 MEDICAL INDUCTION LABOR 09/20/2013 74.1 LOW CERVICAL 09/20/2013 [id number] EXTRACTION OF POC, LOW CERVICAL, OPEN AP 09/02/2017 Results Test Result Range CULTURE, GENITAL - 02/18/17 17:58 CULTURE, GENITAL SEE NOTE NRG SUREPATH PAP RFX HPV mRNA E6/E7 - 02/18/17 17:58 CLINICAL INFORMATION: NRG LMP: NRG PREV. PAP: NRG PREV. BX: NRG SOURCE: NRG STATEMENT OF ADEQUACY: NRG INTERPRETATION/RESULT: NRG RN CLINICAL DOCUMENTATION SPECIALIST: NRG INFECTION: NRG Complete urinalysis with reflex [...] culture - 07/31/17 14:00 Bacterial urine culture [id number] NRG COLONY COUNT 10,000/ML - 100,000/ML NRG [...] 125 Urine protein/creatinine mass ratio 0.17 NRG Urine protein/creatinine mass ratio - 09/01/17 11:08 Urine protein measurement (mass/volume) 36 mg/dL 6-12 Urine creatinine measurement (mass/volume) 163 mg/dL 30- 125 Urine protein/creatinine mass ratio 0.22 NRG Complete blood count (CBC) with automated white blood cell (WBC) differential - 09/02/17 06:30 Blood leukocytes automated count (number/volume) 8.9 10*3/uL 4.3-11.0 Blood erythrocytes automated count (number/volume) 4.70 10*6/uL 4.35-5.85 Venous blood hemoglobin measurement (mass/volume) 12.8 g/dL 11.5-16.0 Blood hematocrit (volume fraction) 37 % 35-52 Automated erythrocyte mean corpuscular volume 79 [foz_us] 80-99 Automated erythrocyte mean corpuscular hemoglobin (mass per erythrocyte) 27 pg 25-34 Automated erythrocyte mean corpuscular hemoglobin concentration measurement ( mass/volume) 34 g/dL 32-36 Automated erythrocyte distribution width ratio 14.4 % 10.0-14.5 Automated blood platelet count (count/volume) 253 10*3/uL 130-400 Automated blood platelet mean volume measurement 10.9 [foz_us] 7.4-10.4 Automated blood neutrophils/100 leukocytes 66 % 42-75 Automated blood lymphocytes/100 leukocytes 25 % 12-44 Blood monocytes/100 leukocytes 8 % 0-12 Automated blood eosinophils/100 leukocytes 1 % 0-10 Automated blood basophils/100 leukocytes 0 % 0-10 Blood neutrophils automated count (number/volume) 5.9 10*3 1.8-7.8 Blood lymphocytes automated count (number/volume) 2.2 10*3 1.0-4.0 Blood monocytes automated count (number/volume) 0.7 10*3 0.0-1.0 Automated eosinophil count 0.1 10*3/uL 0.0-0.3 Automated blood basophil count (count/volume) 0.0 10*3/uL 0.0-0.1 Blood type T Indirect antibody screen panel - 09/02/17 06:30 ABO+Rh group AP NRG Transfusion band number [id number] NRG Blood group antibody screen NEGATIVE NRG Encounters ACCT No. Visit Date/Time Discharge Status Pt. Type Provider Facility Loc./Unit Complaint [id number] 09/02/2017 06:10:00 09/04/2017 11:55:00 DIS Inpatient TORO LOPEZ MD [facility] LDRP PREVIOUS [id number] 09/01/2017 11:08:00 09/01/2017 23:59:59 CLS Outpatient TORO LOPEZ MD [facility] [id number] 08/28/2017 05:39:00 08/28/2017 14:38:00 DIS Outpatient TORO LOPEZ MD [facility] PREOP PREVIOUS C- SECTION [id number] 2017 11:13:00 2017 23:59:59 CLS Outpatient TORO LOPEZ MD [facility] [id number] 08/17/2017 12:17:00 08/17/2017 23:59:59 CLS Outpatient TORO LOPEZ MD [facility] [id number] 08/14/2017 15:14:00 08/14/2017 16:50:00 DIS Outpatient TORO LOPEZ MD [facility] WSo ASSESS FOR PREECLAMPSIA [id number] 08/04/2017 12:44:00 08/04/2017 23:59:59 CLS Outpatient TORO LOPEZ MD [facility] LABNPT [id number] 07/31/2017 13:52:00 07/31/2017 16:05:00 DIS Outpatient TORO LOPEZ MD [facility] WSo RULE OUT LABOR [id number] 02/24/2017 14:03:00 02/24/2017 23:59:59 CLS Outpatient KALEIGH NUÑEZ MD [facility] RAD DATES [id number] 09/09/2013 11:36:00 09/22/2013 12:20:00 DIS Inpatient TORO LOPEZ MD [facility] LDRP PRECLAMPSIA [id number] 08/30/2013 11:15:00 08/31/2013 09:50:00 DIS Inpatient TORO LOPEZ MD [facility] WS OB EVAL TO IN , CRAMPING, SWELLING,VOMITING [id number] 07/31/2013 09:31:00 07/31/2013 10:43:00 DIS Outpatient TORO LOPEZ MD [facility] WSo BLEEDING [id number] 09/02/2013 10:40:00 Document Registration [id number] 02/18/2017 15:30:00 02/18/2017 23:59:59 CLS Outpatient MAGALI MOSQUEDA [facility] [id number] 02/18/2017 15:30:00 Document Registration
[2018-02-27] MEDS ORDERED: NS IV 1000 ML 1,000 ML IV SCH (20:45)
[2018-02-27 20:48] LABS: BASOPHILS % (AUTO) 0 % (0-10); EOSINOPHILS % (AUTO) 0 % (0-10); HEMATOCRIT 46 % (35-52); HEMOGLOBIN 16.3 G/DL (11.5-16.0); LYMPHOCYTES # (AUTO) 1.3 X 10^3 (1.0-4.0); LYMPHOCYTES % (AUTO) 27 % (12-44); MEAN CORPUSCULAR HEMOGLOBIN 28 PG (25-34); MEAN CORPUSCULAR HGB CONC 36 G/DL (32-36); MEAN CORPUSCULAR VOLUME 78 FL (80-99); MONOCYTES # (AUTO) 0.4 X 10^3 (0.0-1.0); MONOCYTES % (AUTO) 9 % (0-12); NEUTROPHILS % (AUTO) 63 % (42-75); PLATELET COUNT 267 10^3/uL (130-400); RED BLOOD COUNT 5.87 10^6/uL (4.35-5.85); RED CELL DISTRIBUTION WIDTH 14.9 % (10.0-14.5); WHITE BLOOD COUNT 4.8 10^3/uL (4.3-11.0)
--- NOTE | 2018-02-27 21:11 | ED General ---
General Stated Complaint: FEVER 103.7/COUGH/VOMITING/DIARRHEA Source of Information: Patient Exam Limitations: No Limitations History of Present Illness Date Seen by Provider: Feb 27, 2018 Time Seen by Provider: 21:10 Initial Comments To ER with a three-day history of fever up to 103, cough, sore throat, rhinorrhea, vomiting, diarrhea. Timing/Duration: 2-3 Days Severity: Moderate Associated Systoms: Cough, Fever/Chills, Nausea/Vomiting Allergies and Home Medications Allergies Coded Allergies: cefaclor (Unverified Allergy, Unknown, RASH, 08/14/17) rash, bruising Home Medications Docusate Sodium 100 Mg Capsule, 100 MG PO BID Prescribed by: TORO REESE on 09/04/17 07 Ibuprofen 800 Mg Tablet, 800 MG PO Q6H Prescribed by: TORO REESE on 09/04/17 07 Oxycodone HCl/Acetaminophen 1 Each Tablet, 1-2 TAB PO Q4H PRN for PAIN-MODERATE TO SEVERE Prescribed by: TORO REESE on 09/04/17 07 Pnv No.122/Iron/Folic Acid 1 Each Tablet, 1 EACH PO DAILY, (Reported) Patient Home Medication List Home Medication List Reviewed: Yes Review of Systems Review of Systems Constitutional: see HPI, chills, fever EENTM: see HPI Respiratory: see HPI, cough Cardiovascular: no symptoms reported Genitourinary: no symptoms reported Musculoskeletal: no symptoms reported Skin: no symptoms reported Psychiatric/Neurological: No Symptoms Reported Hematologic/Lymphatic: No Symptoms Reported Past Ktolgiu-Cvjkho-Zmnjzx Hx Patient Social History Type Used: Cigarettes Former Smoker, Quit: August 28, 2012 Recent Foreign Travel: No Contact w/Someone Who Travel: No Recent Hopitalizations: No Immunizations Up To Date Tetanus Booster (TDap): More than 5yrs PED Vaccines UTD: No Seasonal Allergies Seasonal Allergies: No Past Medical History Surgeries: Yes Respiratory: No Cardiac: No Neurological: No Reproductive Disorders: No Genitourinary: No Gastrointestinal: No Musculoskeletal: No Endocrine: No HEENT: No Cancer: No Psychosocial: No Integumentary: No Blood Disorders: No Adverse Reaction/Blood Tranf: No Family Medical History Cancer 19 FATHER (grandmother-breast cancer) 19 MOTHER (grandpa-pancreatic) Family history: Arthritis 19 MOTHER (grandmother) Family history: Breast disease 19 FATHER (breast cancer-paternal) Family history: Cardiovascular disease 19 MOTHER (grandpa bypass) Family history: Diabetes mellitus 19 FATHER (father) 19 MOTHER (mother) Family history: Gastrointestinal disease 19 MOTHER (great grandpa -diverticulitis) Family history: Glaucoma 19 MOTHER (grandmother) Family history: Hypertension 19 FATHER (father) Family history: Osteoporosis 19 MOTHER (great grandmother) Family history: Thyroid disorder 19 MOTHER (mother) Headache 19 MOTHER (grandmother and mom) Heart disease 19 FATHER (father) Hypercholesterolemia 19 MOTHER (mom) Myocardial infarction 19 FATHER (father) No Family History of: Abdominal aortic aneurysm Naga's disease Alcoholism Aphasia Cancer of colon Cataract Chest pain Congenital heart disease Congestive heart failure Cystic fibrosis Dementia Dysphagia Family history: Allergy Family history: Alzheimer's disease Family history: Asthma Family history: Coronary thrombosis Hearing loss Hereditary disease History of - anemia History of - disorder History of drug abuse Human immunodeficiency virus (HIV) seropositivity Infertile Kidney disease Malignant neoplasm of lung Parkinson's disease Prostate cancer Psychotic disorder Seizure disorder Stroke Tuberculosis Visual impairment Physical Exam Vital Signs Capillary Refill : Height, Weight, BMI Height: 5'6.00" Weight: 241lbs. 0.0oz. 109.123422wz; 38.9 BMI Method: General Appearance: No Apparent Distress, WD/WN Eyes: Bilateral Eye Normal Inspection, Bilateral Eye PERRL, Bilateral Eye EOMI HEENT: PERRL/EOMI, TMs Normal, Normal ENT Inspection, Pharynx Normal Neck: Full Range of Motion, Normal Inspection Respiratory: No Accessory Muscle Use, No Respiratory Distress Cardiovascular: Regular Rate, Rhythm, Normal Peripheral Pulses Gastrointestinal: Normal Bowel Sounds, Non Tender, Soft Extremity: Normal Capillary Refill, Normal Inspection Neurologic/Psychiatric: Alert, Oriented x3, No Motor/Sensory Deficits Skin: Normal Color, Warm/Dry Progress/Results/Core Measures Suspected Sepsis SIRS Temperature: Pulse: Respiratory Rate: Laboratory Tests 02/27/18 20:42: White Blood Count 4.8 Blood Pressure / Mean: Laboratory Tests 02/27/18 20:42: Creatinine 0.82, Platelet Count 267, Total Bilirubin 1.1H Results/Orders Lab Results Laboratory Tests Test 02/27/18 20:42 Range/Units White Blood Count 4.8 4.3-11.0 10^3/uL Red Blood Count 5.87 H 4.35-5.85 10^6/uL Hemoglobin 16.3 H 11.5-16.0 G/DL Hematocrit 46 35-52 % Mean Corpuscular Volume 78 L 80-99 FL Mean Corpuscular Hemoglobin 28 25-34 PG Mean Corpuscular Hemoglobin Concent 36 32-36 G/DL Red Cell Distribution Width 14.9 H 10.0-14.5 % Platelet Count 267 130-400 10^3/uL Mean Platelet Volume 10.0 7.4-10.4 FL Neutrophils (%) (Auto) 63 42-75 % Lymphocytes (%) (Auto) 27 12-44 % Monocytes (%) (Auto) 9 0-12 % Eosinophils (%) (Auto) 0 0-10 % Basophils (%) (Auto) 0 0-10 % Neutrophils # (Auto) 3.0 1.8-7.8 X 10^3 Lymphocytes # (Auto) 1.3 1.0-4.0 X 10^3 Monocytes # (Auto) 0.4 0.0-1.0 X 10^3 Eosinophils # (Auto) 0.0 0.0-0.3 10^3/uL Basophils # (Auto) 0.0 0.0-0.1 10^3/uL Sodium Level 140 135-145 MMOL/L Potassium Level 2.9 L 3.6-5.0 MMOL/L Chloride Level 104 98-107 MMOL/L Carbon Dioxide Level 22 21-32 MMOL/L Anion Gap 14 5-14 MMOL/L Blood Urea Nitrogen 9 7-18 MG/DL Creatinine 0.82 0.60-1.30 MG/DL Estimat Glomerular Filtration Rate > 60 BUN/Creatinine Ratio 11 Glucose Level 93 70-105 MG/DL Calcium Level 9.7 8.5-10.1 MG/DL Corrected Calcium 8.5-10.1 MG/DL Magnesium Level 2.3 1.8-2.4 MG/DL Total Bilirubin 1.1 H 0.1-1.0 MG/DL Aspartate Amino Transf (AST/SGOT) 19 5-34 U/L Alanine Aminotransferase (ALT/SGPT) 18 0-55 U/L Alkaline Phosphatase 120 40-136 U/L Total Protein 8.1 6.4-8.2 GM/DL Albumin 4.7 H 3.2-4.5 GM/DL Serum Test, Qualitative NEGATIVE NEGATIVE Micro Results Microbiology 02/27/18 Influenza Types A,B Antigen (BETH) - Final, Complete My Orders Orders - DARRON CANNON APRN Iv Heplock-Insert (Order) (02/27/18 20:27) Cbc With Automated Diff (02/27/18 20:27) Comprehensive Metabolic Panel (02/27/18 20:27) Chest Pa/Lat (2 View) (02/27/18 20:27) Hcg,Qualitative Serum (02/27/18 20:27) Influenza A And B Antigens (02/27/18 20:27) Ns Iv 1000 Ml (Sodium Chloride 0.9%) (02/27/18 20:45) Magnesium (02/27/18 21:23) Magnesium Oxide Tablet (Mag Ox Tablet) (02/27/18 21:30) Potassium Chloride Powder (Klor Con 20 M (02/27/18 21:30) Vital Signs/I&O Capillary Refill : Departure Impression Primary Impression: Bronchitis Additional Impression: Hypokalemia Disposition: 01 HOME, SELF-CARE Condition: Stable Departure-Patient Inst. Decision time for Depature: 21:56 Referrals: NO,LOCAL PHYSICIAN (PCP) Primary Care Physician TORO LOPEZ MD (Family) Primary Care Physician Patient Instructions: Acute Bronchitis, Adult (DC), Hypokalemia Add. Discharge Instructions: 1. Her potassium was low likelihood or vomiting and diarrhea. Take potassium supplement for the next few days. This is safe in breast-feeding. Return to ER for any concerns. Tylenol and Motrin for any fevers or chills. Drink plenty of fluids and Pedialyte is a great choice for adults also DARRON CANNON APRN Feb 27, 2018 21:11
[2018-02-27 21:19] LABS: ALANINE AMINOTRANSFERASE 18 U/L (0-55); ALBUMIN 4.7 GM/DL (3.2-4.5); ALKALINE PHOSPHATASE 120 U/L (40-136); BILIRUBIN,TOTAL 1.1 MG/DL (0.1-1.0); BUN/CREATININE RATIO 11; CALCIUM 9.7 MG/DL (8.5-10.1); CARBON DIOXIDE 22 MMOL/L (21-32); CHLORIDE 104 MMOL/L (98-107); CREATININE SERUM 0.82 MG/DL (0.60-1.30); GFR ESTIMATED > 60; GLUCOSE 93 MG/DL (70-105); POTASSIUM 2.9 MMOL/L (3.6-5.0); SODIUM 140 MMOL/L (135-145); TOTAL PROTEIN 8.1 GM/DL (6.4-8.2)
[2018-02-27] MEDS ORDERED: MAGNESIUM OXIDE (MAG-OX)400 MG TAB PO ONE (21:30)
[2018-02-27] MEDS ORDERED: KCL 20 MEQ POWDER FOR ORAL SOLUTION PO ONE (21:30)
--- NOTE | 2018-02-27 21:52 | Diagnostic Imaging Report ---
INDICATION: Cough and congestion COMPARISON: None FINDINGS: Frontal and lateral views of the chest demonstrate normal heart size and pulmonary vascularity. The lungs are clear. There are no signs of infiltrate, pleural effusions or pneumothoraces. The visualized osseous structures show no acute abnormalities. IMPRESSION: 1. No acute process. No signs of infiltrates, effusions or pneumothoraces. Dictated by: Dictated on workstation # [id number]
[2018-02-27] MEDS ORDERED: POTA-51 PO (22:13)
[2018-02-27 22:20] VITALS: BP 145/102
== END 2018-02-27 22:20 | disposition home or self-care (01) ==
LOC: EDUNIT# 18:20 → ER 18:21
DX: J40 Bronchitis, not specified as acute or chronic (principal); E87.6 Hypokalemia; Z88.8 Allergy status to other drugs, medicaments and biological substances; Z87.891 Personal history of nicotine dependence; Z80.3 Family history of malignant neoplasm of breast; Z80.0 Family history of malignant neoplasm of digestive organs; Z82.49 Family history of ischemic heart disease and other diseases of the circulatory system
CPT/HCPCS: 36415; 71046; 80053; 83735; 84703; 85025; 87804; 96360

== ENCOUNTER 2018-03-01 20:22 | Observation (INO) | payer BC ==
[~2018-03-01] VITALS: Ht 165.1 cm; Wt 92.5 kg
[~2018-03-01 20:22] MED LIST changes: +POTA-51 PO
--- OUTSIDE RECORDS SUMMARY | 2018-03-01 20:27 | XMS REPORT | Continuity of Care Document ---
Author Author [facility] Organization [facility] Address Unknown Phone Unavailable Allergies Active Description Code Type Severity Reaction Onset Reported/Identified Relationship to Patient Clinical Status Yes cefaclor [id number] Drug Allergy Unknown RASH 08/14/2017 Medications There [...] NEC 09/22/2013 TORO LOPEZ MD Ot V06.1 [id number], COMBINED [ 09/22/2013 TORO LOPEZ MD Ot V06.4 [id number] 09/22/2013 TORO LOPEZ MD Ot V27.0 DELIVER-SINGLE [...] INDUCTION LABOR 09/20/2013 74.1 LOW CERVICAL 09/20/2013 03A14O2 EXTRACTION OF POC, LOW CERVICAL, OPEN AP 09/02/2017 Results Test Result Range CULTURE, GENITAL - 02/18/17 17:58 CULTURE, GENITAL SEE NOTE NRG SUREPATH PAP RFX HPV mRNA E6/E7 - 02/18/17 17:58 CLINICAL INFORMATION: NRG LMP: NRG PREV. PAP: NRG PREV. BX: NRG SOURCE: NRG STATEMENT OF ADEQUACY: NRG INTERPRETATION/RESULT: NRG POLICEMAN: NRG INFECTION: NRG Complete urinalysis with reflex [...] culture - 07/31/17 14:00 Bacterial urine culture [id number] NRG COLONY COUNT 10,000/ML - 100,000/ML NRG [...] ABO+Rh group AP NRG Transfusion band number [id number] NRG Blood group antibody screen NEGATIVE NRG Encounters ACCT No. Visit Date/Time Discharge Status Pt. Type Provider Facility Loc./Unit Complaint [id number] 09/02/2017 06:10:00 09/04/2017 11:55:00 DIS Inpatient TORO LOPEZ MD [facility] LDRP PREVIOUS [id number] 09/01/2017 11:08:00 09/01/2017 23:59:59 CLS Outpatient TORO LOPEZ MD [facility] [id number] 08/28/2017 05:39:00 08/28/2017 14:38:00 DIS Outpatient TORO LOPZE MD [facility] PREOP PREVIOUS C- SECTION [id number] 2017 11:13:00 2017 23:59:59 CLS Outpatient TORO LOPEZ MD [facility] [id number] 08/17/2017 12:17:00 08/17/2017 23:59:59 CLS Outpatient TORO LOPEZ MD [facility] [id number] 08/14/2017 15:14:00 08/14/2017 16:50:00 DIS Outpatient TORO LOPEZ MD [facility] WSo ASSESS FOR PREECLAMPSIA [id number] 08/04/2017 12:44:00 08/04/2017 23:59:59 CLS Outpatient TORO LOPEZ MD [facility] LABNPT [id number] 07/31/2017 13:52:00 07/31/2017 16:05:00 DIS Outpatient TORO LOPEZ MD [facility] WSo RULE OUT LABOR [id number] 02/24/2017 14:03:00 02/24/2017 23:59:59 CLS Outpatient KALEIGH NUÑEZ MD [facility] RAD DATES [id number] 09/09/2013 11:36:00 09/22/2013 12:20:00 DIS Inpatient TORO LOPEZ MD [facility] LDRP PRECLAMPSIA [id number] 08/30/2013 11:15:00 08/31/2013 09:50:00 DIS Inpatient TORO LOPEZ MD [facility] WS OB EVAL TO IN , CRAMPING, SWELLING,VOMITING [id number] 07/31/2013 09:31:00 07/31/2013 10:43:00 DIS Outpatient TORO LOPEZ MD [facility] WSo BLEEDING [id number] 09/02/2013 10:40:00 Document Registration [id number] 02/18/2017 15:30:00 02/18/2017 23:59:59 CLS Outpatient MAGALI MOSQUEDA [facility] [id number] 02/18/2017 15:30:00 Document Registration
[2018-03-01] MEDS ORDERED: IBUPROFEN TABLET 200 MG TAB PO ONE (20:45)
[2018-03-01] MEDS ORDERED: ACETAMINOPHEN 325 MG TABLET PO ONE (20:45)
--- NOTE | 2018-03-01 20:48 | ED General ---
General Stated Complaint: FEVER 104.3/SOB/VOMITING Source of Information: Patient Exam Limitations: No Limitations History of Present Illness Date Seen by Provider: Mar 01, 2018 Time Seen by Provider: 20:47 Initial Comments To ER with fever up to 104, short of breath worsening and vomiting. She was seen here 2 days ago for the same however symptoms have worsened since then. Her 2 young children were seen here in the emergency room at the same time for the same symptoms and the diagnosis of bronchitis of viral etiology was diagnosed. Chest x-ray was clear. She presents today due to worsening symptoms. Timing/Duration: 1 Week Severity: Moderate Associated Systoms: Cough, Nausea/Vomiting, Shortness of Air Allergies and Home Medications Allergies Coded Allergies: cefaclor (Unverified Allergy, Unknown, RASH, 08/14/17) rash, bruising Home Medications Docusate Sodium 100 Mg Capsule, 100 MG PO BID Prescribed by: TORO REESE on 09/04/17 0704 Ibuprofen 800 Mg Tablet, 800 MG PO Q6H Prescribed by: TORO REESE on 09/04/17 0704 Oxycodone HCl/Acetaminophen 1 Each Tablet, 1-2 TAB PO Q4H PRN for PAIN-MODERATE TO SEVERE Prescribed by: TORO REESE on 09/04/17 0704 Pnv No.122/Iron/Folic Acid 1 Each Tablet, 1 EACH PO DAILY, (Reported) Potassium Chloride 20 Meq Tablet.er, 40 MEQ PO DAILY Prescribed by: DARRON CANNON on 02/27/18 2213 Patient Home Medication List Home Medication List Reviewed: Yes Review of Systems Review of Systems Constitutional: see HPI, chills, fever, malaise, weakness EENTM: see HPI Respiratory: see HPI, cough, short of breath Cardiovascular: no symptoms reported Genitourinary: no symptoms reported Musculoskeletal: no symptoms reported Skin: no symptoms reported Psychiatric/Neurological: No Symptoms Reported Past [place]-Uapqsf-Qwwvuj Hx Patient Social History Type Used: Cigarettes Former Smoker, Quit: August 28, 2012 2nd Hand Smoke Exposure: No Recent Foreign Travel: No Contact w/Someone Who Travel: No Recent Hopitalizations: No Immunizations Up To Date Tetanus Booster (TDap): Unknown PED Vaccines UTD: No Seasonal Allergies Seasonal Allergies: No Past Medical History Surgeries: Yes Respiratory: No Cardiac: No Neurological: No Reproductive Disorders: No Genitourinary: No Gastrointestinal: No Musculoskeletal: No Endocrine: No HEENT: No Cancer: No Psychosocial: No Integumentary: No Blood Disorders: No Adverse Reaction/Blood Tranf: No Family Medical History Cancer 19 FATHER (grandmother-breast cancer) 19 MOTHER (grandpa-pancreatic) Family history: Arthritis 19 MOTHER (grandmother) Family history: Breast disease 19 FATHER (breast cancer-paternal) Family history: Cardiovascular disease 19 MOTHER (grandpa bypass) Family history: Diabetes mellitus 19 FATHER (father) 19 MOTHER (mother) Family history: Gastrointestinal disease 19 MOTHER (great grandpa -diverticulitis) Family history: Glaucoma 19 MOTHER (grandmother) Family history: Hypertension 19 FATHER (father) Family history: Osteoporosis 19 MOTHER (great grandmother) Family history: Thyroid disorder 19 MOTHER (mother) Headache 19 MOTHER (grandmother and mom) Heart disease 19 FATHER (father) Hypercholesterolemia 19 MOTHER (mom) Myocardial infarction 19 FATHER (father) No Family History of: Abdominal aortic aneurysm [place]'s disease Alcoholism Aphasia Cancer of colon Cataract Chest pain Congenital heart disease Congestive heart failure Cystic fibrosis Dementia Dysphagia Family history: Allergy Family history: Alzheimer's disease Family history: Asthma Family history: Coronary thrombosis Hearing loss Hereditary disease History of - anemia History of - disorder History of drug abuse Human immunodeficiency virus (HIV) seropositivity Infertile Kidney disease Malignant neoplasm of lung Parkinson's disease Prostate cancer Psychotic disorder Seizure disorder Stroke Tuberculosis Visual impairment Physical Exam Vital Signs Vital Signs - First Documented 03/01/18 03/01/18 20:38 21:24 Temp 102.7 Pulse 128 Resp 33 B/P (MAP) 147/97 (114) Pulse Ox 97 O2 Delivery Room Air O2 Flow Rate 2.00 Capillary Refill : Height, Weight, BMI Height: 5'5.00" Weight: 210lbs. 0.0oz. 95.837423md; 38.9 BMI Method:Stated General Appearance: No Apparent Distress, WD/WN, Moderate Distress, Other ( short of breath, tachypneic with a respiratory rate of 28, tachycardic at 127, febrile at 102, oxygen saturation dropped to a low point of 90-92% on room air so she was given supplemental oxygen.) HEENT: PERRL/EOMI, TMs Normal Neck: Full Range of Motion, Normal Inspection Respiratory: No Accessory Muscle Use, No Respiratory Distress, Decreased Breath Sounds Cardiovascular: Normal Peripheral Pulses, Tachycardia Gastrointestinal: Normal Bowel Sounds, Non Tender, Soft Neurologic/Psychiatric: Alert, Oriented x3, No Motor/Sensory Deficits Skin: Normal Color, Warm/Dry Focused Exam Lactate Level 03/01/18 20:40: Lactic Acid Level 1.21 Lactic Acid Level Laboratory Tests Test 03/01/18 20:40 Lactic Acid Level 1.21 MMOL/L (0.50-2.00) Progress/Results/Core Measures Suspected Sepsis SIRS Temperature: Pulse: Respiratory Rate: Laboratory Tests 03/01/18 20:40: White Blood Count 10.5 Blood Pressure / Mean: 03/01/18 20:40: Lactic Acid Level 1.21 Laboratory Tests 03/01/18 20:40: Creatinine 0.85, Platelet Count 262, Total Bilirubin 0.9 Results/Orders Lab Results Laboratory Tests Test 03/01/18 20:40 Range/Units White Blood Count 10.5 4.3-11.0 10^3/uL Red Blood Count 5.52 4.35-5.85 10^6/uL Hemoglobin 15.2 11.5-16.0 G/DL Hematocrit 42 35-52 % Mean Corpuscular Volume 77 L 80-99 FL Mean Corpuscular Hemoglobin 28 25-34 PG Mean Corpuscular Hemoglobin Concent 36 32-36 G/DL Red Cell Distribution Width 14.6 H 10.0-14.5 % Platelet Count 262 130-400 10^3/uL Mean Platelet Volume 10.0 7.4-10.4 FL Neutrophils (%) (Auto) 80 H 42-75 % Lymphocytes (%) (Auto) 12 12-44 % Monocytes (%) (Auto) 9 0-12 % Eosinophils (%) (Auto) 0 0-10 % Basophils (%) (Auto) 0 0-10 % Neutrophils # (Auto) 8.3 H 1.8-7.8 X 10^3 Lymphocytes # (Auto) 1.2 1.0-4.0 X 10^3 Monocytes # (Auto) 0.9 0.0-1.0 X 10^3 Eosinophils # (Auto) 0.0 0.0-0.3 10^3/uL Basophils # (Auto) 0.0 0.0-0.1 10^3/uL D-Dimer 1.32 H 0.00-0.49 UG/ML Sodium Level 136 135-145 MMOL/L Potassium Level 2.8 L 3.6-5.0 MMOL/L Chloride Level 101 98-107 MMOL/L Carbon Dioxide Level 20 L 21-32 MMOL/L Anion Gap 15 H 5-14 MMOL/L Blood Urea Nitrogen 7 7-18 MG/DL Creatinine 0.85 0.60-1.30 MG/DL Estimat Glomerular Filtration Rate > 60 BUN/Creatinine Ratio 8 Glucose Level 92 70-105 MG/DL Lactic Acid Level 1.21 0.50-2.00 MMOL/L Calcium Level 9.3 8.5-10.1 MG/DL Corrected Calcium 9.0 8.5-10.1 MG/DL Total Bilirubin 0.9 0.1-1.0 MG/DL Aspartate Amino Transf (AST/SGOT) 16 5-34 U/L Alanine Aminotransferase (ALT/SGPT) 19 0-55 U/L Alkaline Phosphatase 105 40-136 U/L Total Protein 7.9 6.4-8.2 GM/DL Albumin 4.4 3.2-4.5 GM/DL Serum Test, Qualitative NEGATIVE NEGATIVE My Orders Orders - DARRON CANNON APRN Cbc With Automated Diff (03/01/18 20:39) Comprehensive Metabolic Panel (03/01/18 20:39) Fibrin Degradation Products (03/01/18 20:39) Iv Heplock-Insert (Order) (03/01/18 20:39) Chest 1 View, Ap/Pa Only (03/01/18 20:39) Ibuprofen Tablet (Motrin Tablet) (03/01/18 20:45) Acetaminophen Tablet/Caplet (Tylenol T (03/01/18 20:45) Blood Culture (03/01/18 21:01) Lactic Acid Analyzer (03/01/18 21:01) Mycoplasma Antibodies (03/01/18 21:01) Ct Angio Chest W (03/01/18 21:16) Ns Iv 1000 Ml (Sodium Chloride 0.9%) (03/01/18 21:30) Potassium Cl 10meq/50ml Ivpb (Kcl 10 Meq (03/01/18 21:30) Hcg,Qualitative Serum (03/01/18 21:17) Iohexol Injection (Omnipaque 350 Mg/Ml 1 (03/01/18 21:30) Contrast Received (Contrast Received) (03/01/18 21:30) Ns (Ivpb) (Sodium Chloride 0.9%) (03/01/18 21:30) Levalbuterol (Non-Formulary) (Xopenex (N (03/01/18 21:30) Medications Given in ED Current Medications Medications Dose Ordered Sig/Alla Route Start Time Stop Time Status Last Admin Dose Admin Acetaminophen 650 mg ONCE ONCE PO 03/01/18 20:45 03/01/18 20:46 DC 03/01/18 20:54 650 MG Ibuprofen 400 mg ONCE ONCE PO 03/01/18 20:45 03/01/18 20:46 DC 03/01/18 20:53 400 MG Iohexol 150 ml ONCE ONCE IV 03/01/18 21:30 03/01/18 21:46 DC 03/01/18 22:53 125 ML Sodium Chloride 250 ml ONCE ONCE IV 03/01/18 21:30 03/01/18 21:46 DC 03/01/18 22:53 80 ML Vital Signs/I&O 03/01/18 03/01/18 03/01/18 03/01/18 20:38 20:38 20:53 20:54 Temp 102.7 102.7 102.7 Pulse 128 Resp 33 B/P (MAP) 147/97 (114) Pulse Ox 97 O2 Delivery Room Air Room Air 03/01/18 21:24 Pulse Ox 94 O2 Delivery Nasal Cannula O2 Flow Rate 2.00 Capillary Refill : Departure Communication (Admissions) She is concerned about the recommendation from marketing technologist to abstain from breast feeding for 48 hours after the administration of IV contrast media. However the [employer] has an article that suggests that there is no value in stopping breast-feeding for beyond 24 hours and in fact they may continue breast-feeding immediately thereafter. I also spoke with Dr. Smith about this and she agrees that the patient can continue breast-feeding immediately but if she is concerned she may wait for 24 hours to resume breast- feeding. Patient was given a breast pump to pump in the emergency room and get one last dose of breast milk and a bottle for her infant prior to receiving this IV contrast. I do feel the IV contrast/angiogram is necessary given the elevated d-dimer, a clear chest x-ray, hypoxia at 90-92% on room air and tachycardia 130. Impression Primary Impression: Hypokalemia Additional Impressions: Volume depletion Pneumonia Qualified Codes: J18.9 - Pneumonia, unspecified organism Disposition: ADMITTED INPATIENT Condition: Stable Admissions Decision to Admit Reason: Admit from ER (General) Decision to Admit/Date: Mar 01, 2018 Time/Decision to Admit Time: 22:35 Departure-Patient Inst. Referrals: NO,LOCAL PHYSICIAN (PCP) Primary Care Physician TORO LOPEZ MD (Family) Primary Care Physician DARRON CANNON APRN Mar 01, 2018 20:48
[2018-03-01 20:53] LABS: BASOPHILS % (AUTO) 0 % (0-10); EOSINOPHILS % (AUTO) 0 % (0-10); HEMATOCRIT 42 % (35-52); HEMOGLOBIN 15.2 G/DL (11.5-16.0); LYMPHOCYTES # (AUTO) 1.2 X 10^3 (1.0-4.0); LYMPHOCYTES % (AUTO) 12 % (12-44); MEAN CORPUSCULAR HEMOGLOBIN 28 PG (25-34); MEAN CORPUSCULAR HGB CONC 36 G/DL (32-36); MEAN CORPUSCULAR VOLUME 77 FL (80-99); MONOCYTES # (AUTO) 0.9 X 10^3 (0.0-1.0); MONOCYTES % (AUTO) 9 % (0-12); NEUTROPHILS # (AUTO) 8.3 X 10^3 (1.8-7.8); NEUTROPHILS % (AUTO) 80 % (42-75); PLATELET COUNT 262 10^3/uL (130-400); RED BLOOD COUNT 5.52 10^6/uL (4.35-5.85); RED CELL DISTRIBUTION WIDTH 14.6 % (10.0-14.5); WHITE BLOOD COUNT 10.5 10^3/uL (4.3-11.0)
[2018-03-01 21:10] LABS: ALANINE AMINOTRANSFERASE 19 U/L (0-55); ALBUMIN 4.4 GM/DL (3.2-4.5); ALKALINE PHOSPHATASE 105 U/L (40-136); BILIRUBIN,TOTAL 0.9 MG/DL (0.1-1.0); CALCIUM 9.3 MG/DL (8.5-10.1); CARBON DIOXIDE 20 MMOL/L (21-32); CHLORIDE 101 MMOL/L (98-107); GLUCOSE 92 MG/DL (70-105); POTASSIUM 2.8 MMOL/L (3.6-5.0); SODIUM 136 MMOL/L (135-145); TOTAL PROTEIN 7.9 GM/DL (6.4-8.2)
[2018-03-01] MEDS ORDERED: NS IV 1000 ML 1,000 ML IV SCH (21:30)
[2018-03-01] MEDS ORDERED: RECEIVED CONTRAST (Hold Metformin) IV SCH (21:30)
[2018-03-01] MEDS ORDERED: RT-LEVALBUTEROL (XOPENEX) 1.25 MG/3 ML NEB NON-FORMULARY INH SCH (21:30)
[2018-03-01] MEDS ORDERED: NS 250 ML (IVPB) BAG IV ONE (21:30)
[2018-03-01] MEDS ORDERED: IOHEXOL 350 MG/ML 150 ML (OMNIPAQUE 350) VIAL IV ONE (21:30)
[2018-03-01] MEDS ORDERED: POTASSIUM CL 10MEQ/50ML IVPB 50 ML IV ONE (21:30)
[2018-03-01 21:32] LABS: BUN/CREATININE RATIO 8; CREATININE SERUM 0.85 MG/DL (0.60-1.30); GFR ESTIMATED > 60
--- NOTE | 2018-03-01 21:38 | Diagnostic Imaging Report ---
INDICATION: Cough and fever COMPARISON: 02/27/2018 FINDINGS: Single frontal view of the chest demonstrates normal heart size and pulmonary vascularity. The lungs are well aerated and clear. No large pleural effusion or pneumothorax is seen. The visualized osseous structures show no acute abnormalities. IMPRESSION: 1. No acute cardiopulmonary process. Dictated by: Dictated on workstation # [id number]
--- OUTSIDE RECORDS SUMMARY | 2018-03-01 23:32 | XMS REPORT | Continuity of Care Document ---
Author Author [facility] Organization [facility] Address Unknown Phone Unavailable Allergies Active Description Code Type Severity Reaction Onset Reported/Identified Relationship to Patient Clinical Status Yes cefaclor [id number] Drug Allergy Unknown RASH 08/14/2017 Medications There [...] NEC 09/22/2013 TORO LOPEZ MD Ot V06.1 [id number], COMBINED [ 09/22/2013 TORO LOPEZ MD Ot V06.4 [id number] 09/22/2013 TORO LOPEZ MD Ot V27.0 DELIVER-SINGLE [...] INDUCTION LABOR 09/20/2013 74.1 LOW CERVICAL 09/20/2013 [id number] EXTRACTION OF POC, LOW CERVICAL, OPEN AP 09/02/2017 Results Test Result Range CULTURE, GENITAL - 02/18/17 17:58 CULTURE, GENITAL SEE NOTE NRG SUREPATH PAP RFX HPV mRNA E6/E7 - 02/18/17 17:58 CLINICAL INFORMATION: NRG LMP: NRG PREV. PAP: NRG PREV. BX: NRG SOURCE: NRG STATEMENT OF ADEQUACY: NRG INTERPRETATION/RESULT: NRG PHYSICIAN NEONATOLOGY: NRG INFECTION: NRG Complete urinalysis with reflex [...] culture - 07/31/17 14:00 Bacterial urine culture [id number] NRG COLONY COUNT 10,000/ML - 100,000/ML NRG [...] ABO+Rh group AP NRG Transfusion band number [id number] NRG Blood group antibody screen NEGATIVE NRG Encounters ACCT No. Visit Date/Time Discharge Status Pt. Type Provider Facility Loc./Unit Complaint [id number] 09/02/2017 06:10:00 09/04/2017 11:55:00 DIS Inpatient TORO LOPEZ MD [facility] LDRP PREVIOUS [id number] 09/01/2017 11:08:00 09/01/2017 23:59:59 CLS Outpatient [id number] 08/28/2017 05:39:00 08/28/2017 14:38:00 DIS Outpatient TORO LOPEZ MD [facility] PREOP PREVIOUS C- SECTION [id number] 2017 11:13:00 2017 23:59:59 CLS Outpatient TORO LOPEZ MD [facility] [id number] 08/17/2017 12:17:00 08/17/2017 23:59:59 CLS Outpatient TORO LOPEZ MD [facility] [id number] 08/14/2017 15:14:00 08/14/2017 16:50:00 DIS Outpatient TORO LOPEZ MD [facility] WSo ASSESS FOR PREECLAMPSIA [id number] 08/04/2017 12:44:00 08/04/2017 23:59:59 CLS Outpatient TORO LOPEZ MD [facility] LABNPT [id number] 07/31/2017 13:52:00 07/31/2017 16:05:00 DIS Outpatient TORO LOPEZ MD [facility] WSo RULE OUT LABOR [id number] 02/24/2017 14:03:00 02/24/2017 23:59:59 CLS Outpatient KALEIGH NUÑEZ MD [facility] RAD DATES [id number] 09/09/2013 11:36:00 09/22/2013 12:20:00 DIS Inpatient TORO LOPEZ MD [facility] LDRP PRECLAMPSIA [id number] 08/30/2013 11:15:00 08/31/2013 09:50:00 DIS Inpatient TORO LOPEZ MD [facility] WS OB EVAL TO IN , CRAMPING, SWELLING,VOMITING [id number] 07/31/2013 09:31:00 07/31/2013 10:43:00 DIS Outpatient TORO LOPEZ MD [facility] WSo BLEEDING [id number] 09/02/2013 10:40:00 Document Registration [id number] 02/18/2017 15:30:00 02/18/2017 23:59:59 CLS Outpatient MAGALI MOSQUEDA [facility] [id number] 02/18/2017 15:30:00 Document Registration
[2018-03-02] VITALS (8 sets, daily range): BP systolic 113–141; BP diastolic 62–95
[2018-03-02] MEDS ORDERED: AZITHROMYCIN 500 MG/NS 250 ML IVPB IV ONE ×2 (01:00)
[2018-03-02] MEDS ORDERED: ONDANSETRON 4 MG/2 ML (SDV) Z0FRAN IV PRN (01:00)
[2018-03-02] MEDS: NS IV 1000 ML 1,000 ML IV SCH ×3 (01:19→17:11)
[2018-03-02] MEDS ORDERED: RT-ALBUTEROL SULF 2.5 MG/3 ML PRE-MIX VIAL IH SCH (02:00)
[2018-03-02] MEDS: POTASSIUM CL 10 MEQ/50 ML IVPB (PRE-MIX) IV SCH ×3 (03:00→05:16)
[2018-03-02] MEDS ORDERED: RT-ALBUTEROL/IPRATROPIUM 3 ML (DUONEB) VIAL INH PRN (03:45)
--- NOTE | 2018-03-02 06:12 | Diagnostic Imaging Report ---
PROCEDURE: CT angiography of the chest with contrast. TECHNIQUE: Multiple contiguous axial images were obtained through the chest after uneventful bolus administration of intravenous contrast. 2D reconstructed CTA MIP acquisitions were also performed. INDICATION: Fever. Cough and congestion. Chest pain. COMPARISON: Chest radiograph 03/01/2018. FINDINGS: No thoracic aortic aneurysm or dissection. No pulmonary artery filling defects. Normal heart size. No pericardial effusion. No mediastinal, hilar or axillary lymphadenopathy. Patchy airspace consolidation in the left lower lobe and lingula. No pleural effusion or pneumothorax. No endobronchial lesions. Osseous structures are intact. The visualized upper abdominal contents are negative. IMPRESSION: 1. Patchy airspace consolidation in left lower lobe and lingula suspicious for pneumonitis. 2. No pulmonary artery filling defects. No thoracic aortic aneurysm or dissection. Dictated by: Dictated on workstation # [id number]
[2018-03-02] MEDS ORDERED: FLU QUADRIvalent (5+ YOA) 2018-2019 (AFLURIA) 0.5 ML IM ONE (07:00)
[2018-03-02] MEDS: IBUPROFEN 600 MG (MOTRIN) TAB PO PRN ×2 (07:20→18:43)
[2018-03-02 07:55] LABS: BUN/CREATININE RATIO 7; CALCIUM 8.5 MG/DL (8.5-10.1); CARBON DIOXIDE 16 MMOL/L (21-32); CHLORIDE 108 MMOL/L (98-107); GFR ESTIMATED > 60; GLUCOSE 85 MG/DL (70-105); POTASSIUM 3.4 MMOL/L (3.6-5.0); SODIUM 137 MMOL/L (135-145)
[2018-03-02] MEDS: RT-LEVALBUTEROL (XOPENEX) 1.25 MG/3 ML NEB NON-FORMULARY INH SCH ×5 (07:56→21:05)
[2018-03-02] MEDS ORDERED: RT-ALBUTEROL/IPRATROPIUM 3 ML (DUONEB) VIAL INH SCH (08:00)
[2018-03-02] MEDS: AZITHROMYCIN 250 MG TAB (ZITHROMAX) PO SCH (08:59)
[2018-03-02] MEDS: AUGMENTIN 875 MG TAB (AMOXICILLIN/CLAVULANATE) PO SCH ×2 (08:59→21:09)
[2018-03-02] MEDS ORDERED: NORE0.3518 PO (09:35)
--- NOTE | 2018-03-02 12:36 | History & Physical-Hospitalist ---
History of Present Illness HPI/Chief Complaint The patient is a 27-year-old white female admitted from the emergency room last night. She reports that her symptoms of upper respiratory problems began on . She has 2 children ages 4-1/2 and 6 months who also had symptoms during this period of time the older child and she later developed some vomiting and diarrhea. She was seen here on 02/27 at the emergency room. Since that time she has gotten worse with fever to 104 and vomiting. Her workup suggested this to be of viral origin. She had a temperature here of 104 at 0650 this morning Date Seen 03/02/18 Time Seen by a Provider: 12:30 Attending Physician Darryn Styles MD PCP No,Local Physician Referring Physician Date of Admission Mar 01, 2018 at 23:23 Home Medications & Allergies Home Medications Reviewed patient Home Medication Reconciliation performed by pharmacy medication reconciliations ground water technician and/or nursing. Patients Allergies have been reviewed. Allergies Allergies Coded Allergies cefaclor (Unverified Allergy, Unknown, RASH, 08/14/17) rash, bruising Past Tvfjeej-Gdufwn-Ttfmcv Hx Past Med/Social Hx: Reviewed Nursing Past Med/Soc Hx Patient Social History Number of Children: 2 Number of living children: 2 Alcohol Use: Denies Use Recreational Drug Use: No Smoking Status: Former Smoker Former Smoker, Quit: Mar 02, 2012 Type Used: Cigarettes 2nd Hand Smoke Exposure: No Physical Abuse Screen: No Sexual Abuse: No Recent Foreign Travel: No Contact w/other who traveled: No Recent Hopitalizations: No Recent Infectious Disease Expo: No Immunizations Up To Date Tetanus Booster (TDap): Unknown Pediatric: Yes Seasonal Allergies Seasonal Allergies: No Past Medical History : No Reproductive: No Sexually Transmitted Disease: No HIV/AIDS: No Female Reproductive Disorders: Denies History of Blood Disorders: No Adverse Reaction to Blood [place]: No Family History Cancer 19 FATHER (grandmother-breast cancer) 19 MOTHER (grandpa-pancreatic) Family history: Arthritis 19 MOTHER (grandmother) Family history: Breast disease 19 FATHER (breast cancer-paternal) Family history: Cardiovascular disease 19 MOTHER (grandpa bypass) Family history: Diabetes mellitus 19 FATHER (father) 19 MOTHER (mother) Family history: Gastrointestinal disease 19 MOTHER (great grandpa -diverticulitis) Family history: Glaucoma 19 MOTHER (grandmother) Family history: Hypertension 19 FATHER (father) Family history: Osteoporosis 19 MOTHER (great grandmother) Family history: Thyroid disorder 19 MOTHER (mother) Headache 19 MOTHER (grandmother and mom) Heart disease 19 FATHER (father) Hypercholesterolemia 19 MOTHER (mom) Myocardial infarction 19 FATHER (father) No Family History of: Abdominal aortic aneurysm [place]'s disease Alcoholism Aphasia Cancer of colon Cataract Chest pain Congenital heart disease Congestive heart failure Cystic fibrosis Dementia Dysphagia Family history: Allergy Family history: Alzheimer's disease Family history: Asthma Family history: Coronary thrombosis Hearing loss Hereditary disease History of - anemia History of - disorder History of drug abuse Human immunodeficiency virus (HIV) seropositivity Infertile Kidney disease Malignant neoplasm of lung Parkinson's disease Prostate cancer Psychotic disorder Seizure disorder Stroke Tuberculosis Visual impairment Review of Systems Constitutional: see HPI EENTM: nose congestion Respiratory: cough Cardiovascular: no symptoms reported Gastrointestinal: diarrhea, nausea, vomiting Genitourinary: no symptoms reported Musculoskeletal: back pain Skin: no symptoms reported Psychiatric/Neurological: No Symptoms Reported Physical Exam Physical Exam Vital Signs Vital Signs - First Documented 03/01/18 03/01/18 20:38 21:24 Temp 102.7 Pulse 128 Resp 33 B/P (MAP) 147/97 (114) Pulse Ox 97 O2 Delivery Room Air O2 Flow Rate 2.00 Capillary Refill : Less Than 3 Seconds Height, Weight, BMI Height: 5'5.00" Weight: 204lbs. 0.0oz. 92.260548ls; 34.0 BMI Method:Stated General Appearance: Mild Distress Eyes: Bilateral Eye Normal Inspection HEENT: Normal ENT Inspection Neck: Normal Inspection Respiratory: Chest Non Tender, Lungs Clear, Normal Breath Sounds, No Accessory Muscle Use, No Respiratory Distress Cardiovascular: Regular Rate, Rhythm, No Edema, No Gallop, No JVD, No Murmur, Normal Peripheral Pulses Gastrointestinal: Normal Bowel Sounds, No Organomegaly, No Pulsatile Mass, Non Tender, Soft Back: No CVA Tenderness Extremity: Normal Capillary Refill, Normal Inspection, Normal Range of Motion, Non Tender, No Calf Tenderness, No Pedal Edema Neurologic/Psychiatric: Alert, Oriented x3, No Motor/Sensory Deficits, Normal Mood/Affect Skin: Normal Color, Warm/Dry Lymphatic: No Adenopathy Results Results/Procedures Labs Laboratory Tests 03/01/18 20:40 03/02/18 07:28 Patient resulted labs reviewed. Assessment/Plan Admission Diagnosis 1.viral/febrile illness. 2.dehydration. 3.nausea and vomiting secondary to number 1 Admission Status: Inpatient Order (span 2 midnights) Reason for Inpatient Admission: Persistent symptoms not relieved by home treatment Assessment and Plan Aggressive fluid replacement and fever control Clinical Quality Measures DVT/VTE Risk/Contraindication: Risk Factor Score Per Nursin RFS Level Per Nursing on Admit: 1=Low/No VTE PPX DARRYN STYLES MD Mar 02, 2018 12:35
[2018-03-02] MEDS ORDERED: NORETHINDRONE 0.35 MG PO SCH (21:00)
[2018-03-03 00:05] VITALS: BP 130/73
[2018-03-03] MEDS: NS IV 1000 ML 1,000 ML IV SCH ×2 (01:20→09:27)
[2018-03-03] MEDS: RT-LEVALBUTEROL (XOPENEX) 1.25 MG/3 ML NEB NON-FORMULARY INH SCH ×6 (01:44→22:32)
[2018-03-03 04:06] VITALS: BP 140/85
[2018-03-03] MEDS: PRENATAL VITAMIN 1 EA TAB PO SCH (06:39)
[2018-03-03 08:00] VITALS: BP 132/90
[2018-03-03] MEDS ORDERED: [UNRECOGNIZED DRUG - REMARK] PO SCH (09:00)
[2018-03-03] MEDS: AZITHROMYCIN 250 MG TAB (ZITHROMAX) PO SCH (09:27)
[2018-03-03] MEDS: AUGMENTIN 875 MG TAB (AMOXICILLIN/CLAVULANATE) PO SCH ×2 (09:27→20:39)
--- NOTE | 2018-03-03 11:53 | Progress Note-Hospitalist ---
DIANA LINCOLN DO 03/03/18 1153: Subjective HPI/CC On Admission Date Seen by Provider: Mar 03, 2018 Time Seen by Provider: 10:00 The patient is a 27-year-old white female admitted from the emergency room last night. She reports that her symptoms of upper respiratory problems began on . She has 2 children ages 4-1/2 and 6 months who also had symptoms during this period of time the older child and she later developed some vomiting and diarrhea. She was seen here on 02/27 at the emergency room. Since that time she has gotten worse with fever to 104 and vomiting. Her workup suggested this to be of viral origin. She had a temperature here of 104 at 0650 this morning Subjective/Events-last exam Patient has had pneumonia 3 times before and wonders if she has asthma Dr Hdz had been her PCP in the past Has 4 yo and 6 month old Breast feeding so will evaluate all meds at [place] Review of Systems Pulmonary: Cough Focused Exam Lactate Level 03/01/18 20:40: Lactic Acid Level 1.21 Objective Exam Vital Signs Vital Signs Date Time Temp Pulse Resp B/P (MAP) Pulse Ox O2 Delivery O2 Flow Rate FiO2 03/03/18 19:01 Room Air 03/03/18 18:51 95 03/03/18 16:03 98.4 116 20 136/88 (104) 03/03/18 04:06 2.00 Capillary Refill : Less Than 3 Seconds General Appearance: No Apparent Distress, WD/WN Respiratory: Chest Non Tender, Normal Breath Sounds, No Accessory Muscle Use, No Respiratory Distress, Crackles, Wheezing Cardiovascular: Regular Rate, Rhythm, No Edema, No Gallop, No JVD, No Murmur, Normal Peripheral Pulses Gastrointestinal: Normal Bowel Sounds, No Organomegaly, No Pulsatile Mass, Non Tender, Soft Neurologic/Psychiatric: Alert, Oriented x3, No Motor/Sensory Deficits, Normal Mood/Affect Results/Procedures Lab Patient resulted labs reviewed. Assessment/Plan Assessment and Plan Assess & Plan/Chief Complaint Assessment: Pneumonia Wheezing Presumed asthma Breast feeding status Plan: Add steroids low dose Nebs Abx DC tomorrow HLIVF Diagnosis/Problems Diagnosis/Problems (1) Pneumonia Status: Acute Qualifiers: Pneumonia type: due to unspecified organism Laterality: unspecified laterality Lung location: unspecified part of lung Qualified Codes: J18.9 - Pneumonia, unspecified organism (2) Wheezing Status: Acute (3) Mother currently breast-feeding Status: Acute Clinical Quality Measures DVT/VTE Risk/Contraindication: Risk Factor Score Per Nursin RFS Level Per Nursing on Admit: 1=Low/No VTE PPX MARIA TERESA [employer] MED STUDENT 03/03/18 1457: Subjective Subjective/Events-last exam Patient states that she feels much better this morning She is still having a mild productive cough She is not currently experiencing any pain She reports no N/V/D The patient is not experiencing shortness of breath Objective Exam General Appearance: No Apparent Distress, WD/WN Respiratory: Chest Non Tender, Normal Breath Sounds, No Accessory Muscle Use, No Respiratory Distress, Crackles Cardiovascular: Regular Rate, Rhythm, No Edema, No Gallop, No JVD, No Murmur, Normal Peripheral Pulses Gastrointestinal: Normal Bowel Sounds, No Organomegaly, No Pulsatile Mass, Non Tender Neurologic/Psychiatric: Alert, Oriented x3, No Motor/Sensory Deficits, Normal Mood/Affect Skin: Normal Color, Warm/Dry Assessment/Plan Assessment and Plan Assess & Plan/Chief Complaint Assessment: 1) Pneumonia Plan: 1) Continue abx therapy 2) Encourage ambulation DIANA LINCOLN DO Mar 03, 2018 11:53 MARIA TERESA [employer] STUDENT Mar 03, 2018 14:57
[2018-03-03 12:00] VITALS: BP 145/87
[2018-03-03] MEDS ORDERED: RT-ADVAIR HFA 115/21 MCG PER PUFF IH SCH (12:00)
[2018-03-03] MEDS: methylPREDNISolone 40 MG/ML (Solu-MEDROL) VIAL IV SCH ×2 (13:47→20:39)
[2018-03-03 16:03] VITALS: BP 136/88
[2018-03-03 19:44] VITALS: BP 145/84
[2018-03-04 00:21] VITALS: BP 158/79
[2018-03-04] MEDS: RT-LEVALBUTEROL (XOPENEX) 1.25 MG/3 ML NEB NON-FORMULARY INH SCH ×2 (03:08→07:15)
[2018-03-04 04:20] VITALS: BP 128/78
[2018-03-04 05:55] LABS: BASOPHILS % (AUTO) 1 % (0-10); EOSINOPHILS % (AUTO) 0 % (0-10); HEMATOCRIT 36 % (35-52); HEMOGLOBIN 12.6 G/DL (11.5-16.0); LYMPHOCYTES # (AUTO) 0.9 X 10^3 (1.0-4.0); LYMPHOCYTES % (AUTO) 11 % (12-44); MEAN CORPUSCULAR HEMOGLOBIN 27 PG (25-34); MEAN CORPUSCULAR HGB CONC 35 G/DL (32-36); MEAN CORPUSCULAR VOLUME 78 FL (80-99); MEAN PLATELET VOLUME 10.5 FL (7.4-10.4); MONOCYTES # (AUTO) 0.4 X 10^3 (0.0-1.0); MONOCYTES % (AUTO) 5 % (0-12); NEUTROPHILS # (AUTO) 6.8 X 10^3 (1.8-7.8); NEUTROPHILS % (AUTO) 83 % (42-75); PLATELET COUNT 245 10^3/uL (130-400); RED BLOOD COUNT 4.65 10^6/uL (4.35-5.85); RED CELL DISTRIBUTION WIDTH 14.6 % (10.0-14.5); WHITE BLOOD COUNT 8.2 10^3/uL (4.3-11.0)
[2018-03-04] MEDS: PRENATAL VITAMIN 1 EA TAB PO SCH (06:28)
[2018-03-04 06:32] LABS: ALANINE AMINOTRANSFERASE 14 U/L (0-55); ALBUMIN 3.7 GM/DL (3.2-4.5); ALKALINE PHOSPHATASE 92 U/L (40-136); BILIRUBIN,TOTAL 0.3 MG/DL (0.1-1.0); BUN/CREATININE RATIO 6; CALCIUM 9.4 MG/DL (8.5-10.1); CARBON DIOXIDE 21 MMOL/L (21-32); CHLORIDE 108 MMOL/L (98-107); CREATININE SERUM 0.67 MG/DL (0.60-1.30); GFR ESTIMATED > 60; GLUCOSE 207 MG/DL (70-105); SODIUM 142 MMOL/L (135-145); TOTAL PROTEIN 6.8 GM/DL (6.4-8.2)
[2018-03-04 08:00] VITALS: BP 146/86
[2018-03-04] MEDS ORDERED: KCL 20 MEQ TAB (K-DUR) PO NR (09:12)
[2018-03-04] MEDS: AUGMENTIN 875 MG TAB (AMOXICILLIN/CLAVULANATE) PO SCH (09:43)
[2018-03-04] MEDS: methylPREDNISolone 40 MG/ML (Solu-MEDROL) VIAL IV SCH (09:43)
[2018-03-04] MEDS: AZITHROMYCIN 250 MG TAB (ZITHROMAX) PO SCH (09:43)
[2018-03-04] MEDS ORDERED: AMOX1TAB12 PO (10:10)
[2018-03-04] MEDS ORDERED: PRED10TA22 PO (10:10)
[2018-03-04] MEDS ORDERED: LEVA1.2516 INH (10:10)
[2018-03-04] MEDS ORDERED: FLUT1DIS28 IH (10:11)
--- NOTE | 2018-03-04 10:12 | Discharge Summary-Hospitalist ---
Diagnosis/Chief Complaint Date of Admission Mar 02, 2018 at 00:35 Date of Discharge Discharge Date: Mar 04, 2018 Admission Diagnosis 1.viral/febrile illness. 2.dehydration. 3.nausea and vomiting secondary to number 1 Discharge Diagnosis (1) Pneumonia Status: Acute (2) Wheezing Status: Resolved (3) Mother currently breast-feeding Status: Acute Discharge Summary Discharge Physical Exam Allergies: Coded Allergies: cefaclor (Unverified Allergy, Unknown, RASH, 08/14/17) rash, bruising Vitals & I&Os Vital Signs Date Time Temp Pulse Resp B/P (MAP) Pulse Ox O2 Delivery O2 Flow Rate FiO2 03/04/18 08:00 Room Air 03/04/18 08:00 97.7 117 18 146/86 (106) 95 03/03/18 04:06 2.00 General Appearance: No Apparent Distress, WD/WN Respiratory: Chest Non Tender, Lungs Clear, Normal Breath Sounds, No Accessory Muscle Use, No Respiratory Distress Cardiovascular: Regular Rate, Rhythm, No Edema, No Gallop, No JVD, No Murmur, Normal Peripheral Pulses Neurologic/Psychiatric: Alert, Oriented x3, No Motor/Sensory Deficits, Normal Mood/Affect Hospital Course Hospital course: Patient a brief hospital course she was admitted for pneumonia placed on empiric antibiotics and nebulizer treatments for wheezing. IV steroids were given low dose which resolved the wheezing at time of discharge. Breast-feeding status noted so all medications that were sent in to the pharmacy were all reviewed by pharmacist for safety and breast-feeding but still recommended to pump and discard until all medications were completed that she will have close follow-up with Dr. Alvarez and pursue the diagnosis of asthma with pulmonary function test and any other tests he deems necessary. Labs (last 24 hrs) Laboratory Tests 03/04/18 05:35: White Blood Count 8.2, Red Blood Count 4.65, Hemoglobin 12.6, Hematocrit 36, Mean Corpuscular Volume 78L, Mean Corpuscular Hemoglobin 27, Mean Corpuscular Hemoglobin Concent 35, Red Cell Distribution Width 14.6H, Platelet Count 245, Mean Platelet Volume 10.5H, Neutrophils (%) (Auto) 83H, Lymphocytes (%) (Auto) 11L, Monocytes (%) (Auto) 5, Eosinophils (%) (Auto) 0, Basophils (%) (Auto) 1, Neutrophils # (Auto) 6.8, Lymphocytes # (Auto) 0.9L, Monocytes # (Auto) 0.4, Eosinophils # (Auto) 0.0, Basophils # (Auto) 0.0, Sodium Level 142, Potassium Level 3.0L, Chloride Level 108H, Carbon Dioxide Level 21, Anion Gap 13, Blood Urea Nitrogen 4L, Creatinine 0.67, Estimat Glomerular Filtration Rate > 60, BUN/ Creatinine Ratio 6, Glucose Level 207H, Calcium Level 9.4, Corrected Calcium 9.6 , Total Bilirubin 0.3, Aspartate Amino Transf (AST/SGOT) 11, Alanine Aminotransferase (ALT/SGPT) 14, Alkaline Phosphatase 92, Total Protein 6.8, Albumin 3.7 Microbiology 03/01/18 Blood Culture - Preliminary, Resulted No growth Patient resulted labs reviewed. Pending Labs Laboratory Tests 03/04/18 05:35: White Blood Count 8.2, Red Blood Count 4.65, Hemoglobin 12.6, Hematocrit 36, Mean Corpuscular Volume 78, Mean Corpuscular Hemoglobin 27, Mean Corpuscular Hemoglobin Concent 35, Red Cell Distribution Width 14.6, Platelet Count 245, Mean Platelet Volume 10.5, Neutrophils (%) (Auto) 83, Lymphocytes (%) (Auto) 11 , Monocytes (%) (Auto) 5, Eosinophils (%) (Auto) 0, Basophils (%) (Auto) 1, Neutrophils # (Auto) 6.8, Lymphocytes # (Auto) 0.9, Monocytes # (Auto) 0.4, Eosinophils # (Auto) 0.0, Basophils # (Auto) 0.0, Sodium Level 142, Potassium Level 3.0, Chloride Level 108, Carbon Dioxide Level 21, Anion Gap 13, Blood Urea Nitrogen 4, Creatinine 0.67, Estimat Glomerular Filtration Rate > 60, BUN/ Creatinine Ratio 6, Glucose Level 207, Calcium Level 9.4, Corrected Calcium 9.6 , Total Bilirubin 0.3, Aspartate Amino Transf (AST/SGOT) 11, Alanine Aminotransferase (ALT/SGPT) 14, Alkaline Phosphatase 92, Total Protein 6.8, Albumin 3.7 Discussion & Recommendations Discharge Planning: <30 minutes discharge planning Discharge Home Medications: Active Scripts Active Advair 100-50 Diskus (Fluticasone/Salmeterol) 1 Each Blst.w.dev 1 Each IH BID Prednisone 10 Mg Tab.ds.pk 20 Mg PO DAILY Levalbuterol HCl 1.25 Mg/3 Ml Vial.neb 1.25 Mg INH RTQ4HR Amox Tr-K Clv 875-125 mg Tab (Amoxicillin/Potassium Clav) 1 Each Tablet 875 Mg PO BID Reported Jencycla (Norethindrone) 0.35 Mg Tablet 0.35 Mg PO HS Multi Tablet (Pnv No.122/Iron/Folic Acid) 1 Each Tablet 1 Tab PO DAILY Instructions to patient/family Please see electronic discharge instructions given to patient. Clinical Quality Measures DVT/VTE Risk/Contraindication: Risk Factor Score Per Nursin RFS Level Per Nursing on Admit: 1=Low/No VTE PPX Copy Copies To 1: TORO LOPEZ MD Copies To 2: RENA ALVAREZ MD Problem Qualifiers (1) Pneumonia: Pneumonia type: due to unspecified organism Laterality: unspecified laterality Lung location: unspecified part of lung Qualified Codes: J18.9 - Pneumonia, unspecified organism DIANA LINCOLN DO Mar 04, 2018 10:12
--- OUTSIDE RECORDS SUMMARY | 2018-03-12 13:46 | XMS REPORT ---
Author Author KALEIGH NUÑEZ Organization [facility] Address [address] [place] [address] Care Team Providers Care Financial Services Rep Name Role Phone KALEIGH NUÑEZ Unavailable PROBLEMS Unknown Problems ALLERGIES Substance Reaction Event Type Date Status Insect stings anaphalactic Non Drug Allergy Feb, Active ENCOUNTERS Encounter Location Date Diagnosis [place] [address] [phone] Mar, 15 weeks gestation of Z3A.15 [place] [address] [place] [id number] [place] [phone] Feb, [place] [id number] [place] [id number] [place] [phone] Feb, Normal in multigravida Z34.80 [place] [address] [place] [id number] [place] [phone] Feb, [place] [address] [place] [id number] [place] [phone] Feb, [place] [address] [place] [id number] [place] [phone] Feb, [facility] [address] [place] [id number] [place] [phone] Nov, IMMUNIZATIONS No Known Immunizations SOCIAL HISTORY Never Assessed REASON FOR VISIT OBHX PLAN OF CARE VITAL SIGNS MEDICATIONS Medication Instructions Dosage Frequency Start Date End Date Duration Status Vitamin and Mineral 28-0.8 MG Active RESULTS No Results PROCEDURES No Known procedures INSTRUCTIONS MEDICATIONS ADMINISTERED No Known Medications MEDICAL (GENERAL) HISTORY Type Description Date Surgical History 09/2013
--- OUTSIDE RECORDS SUMMARY | 2018-03-12 13:47 | XMS REPORT | Continuity of Care Document ---
Author Author [facility] Organization [facility] Address Unknown Phone Unavailable Allergies Active Description Code Type Severity Reaction Onset Reported/Identified Relationship to Patient Clinical Status Yes cefaclor [id number] Drug Allergy Unknown RASH 08/14/2017 Medications There [...] NEC 09/22/2013 TORO LOPEZ MD Ot V06.1 [id number], COMBINED [ 09/22/2013 TORO LOPEZ MD Ot V06.4 [id number] 09/22/2013 TORO LOPEZ MD Ot V27.0 DELIVER-SINGLE [...] O14.03 MILD TO MODERATE PRE-ECLAMPSIA, THIRD TR 08/28/2017 TORO LOPEZ MD, Ot D64.9 ANEMIA, UNSPECIFIED 08/28/2017 TORO LOPEZ MD, Ot O34.211 MATERN CARE FOR LOW TRANSVERSE SCAR FROM 08/28/2017 TORO LOPEZ MD, Ot O99.013 ANEMIA COMPLICATING , THIRD TRI 08/28/2017 TORO LOPEZ MD, Ot Z01.818 ENCOUNTER FOR OTHER PREPROCEDURAL EXAMIN 09/02/2017 TORO LOPEZ MD, Ot D64.9 ANEMIA, [...] Ot Z3A.28 28 WEEKS GESTATION OF 09/07/2017 JOHN MD, TORO G Ot O14.03 MILD TO MODERATE PRE-ECLAMPSIA, THIRD TR 09/17/2017 JOHN COLLINS, TORO Choi Ot O14.03 MILD TO MODERATE PRE-ECLAMPSIA, THIRD TR 02/27/2018 Ot 642.43 MILD/NOS PREECLAMP-ANTEP 02/27/2018 JOAQUIN COLLINS, KALEIGH [place] Ot Z34.81 ENCOUNTER FOR SUPRVSN OF NORMAL PREGNANC 02/27/2018 JOAQUIN COLLINS, KALEIGH [place] Ot Z3A.10 10 WEEKS GESTATION OF 02/27/2018 JOHN COLLINS, TORO Choi Ot O14.03 MILD TO MODERATE PRE-ECLAMPSIA, THIRD TR 02/27/2018 JOHN COLLINS, TORO Choi Ot O14.03 MILD TO MODERATE PRE-ECLAMPSIA, THIRD TR 02/27/2018 JOHN COLLINS, TORO Choi Ot O14.03 MILD TO MODERATE PRE-ECLAMPSIA, THIRD TR 02/27/2018 JOHN COLLINS, TORO Choi Ot O14.03 MILD TO MODERATE PRE-ECLAMPSIA, THIRD TR 03/02/2018 DARRON CANNON APRN Ot E87.6 HYPOKALEMIA 03/02/2018 DARRON CANNON APRN Ot J40 BRONCHITIS, NOT SPECIFIED ACUTE OR CH 03/02/2018 DARRON CANNON APRN Ot R50.9 FEVER, UNSPECIFIED 03/02/2018 DARRON CANNON APRN Ot Z80.0 FAMILY HISTORY OF MALIGNANT NEOPLASM OF 03/02/2018 DARRON CANNON APRN Ot Z80.3 FAMILY HISTORY OF MALIGNANT NEOPLASM OF 03/02/2018 DARRON CANNON APRN Ot Z82.49 FAMILY HX OF ISCHEM HEART DIS AND OTH DI 03/02/2018 DARRON CANNON RN BARIATRIC Ot Z87.891 PERSONAL HISTORY OF NICOTINE DEPENDENCE 03/02/2018 DARRON CANNON APRN Ot Z88.8 ALLERGY STATUS TO OTH DRUG/MEDS/BIOL SUB 03/04/2018 RUSS STYLES MD Ot E86.0 DEHYDRATION 03/04/2018 RUSS STYLES MD Ot J18.9 PNEUMONIA, UNSPECIFIED ORGANISM 03/04/2018 RUSS STYLES MD Ot R06.2 WHEEZING 03/04/2018 RUSS STYLES MD Ot R11.2 NAUSEA WITH VOMITING, UNSPECIFIED 03/04/2018 RUSS STYLES MD Ot 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 03/04/2018 RUSS STYLES MD Ot Z87.891 PERSONAL HISTORY OF NICOTINE DEPENDENCE 03/08/2018 DARRON CANNON APRN Ot E87.6 HYPOKALEMIA 03/08/2018 DARRON CANNON RN BARIATRIC Ot J40 BRONCHITIS, NOT SPECIFIED ACUTE OR CH 03/08/2018 DARRON CANNON RN BARIATRIC Ot R50.9 FEVER, UNSPECIFIED 03/08/2018 DARRON CANNON RN BARIATRIC Ot Z80.0 FAMILY HISTORY OF MALIGNANT NEOPLASM OF 03/08/2018 DARRON CANNON RN BARIATRIC Ot Z80.3 FAMILY HISTORY OF MALIGNANT NEOPLASM OF 03/08/2018 DARRON CANNON APRN Ot Z82.49 FAMILY HX OF ISCHEM HEART DIS AND OTH DI 03/08/2018 DARRON CANNON APRN Ot Z87.891 PERSONAL HISTORY OF NICOTINE DEPENDENCE 03/08/2018 DARRON CANNON APRN Ot Z88.8 ALLERGY STATUS TO OTH DRUG/MEDS/BIOL SUB Procedures Code Description Performed By Performed On 73.4 MEDICAL INDUCTION LABOR 09/20/2013 74.1 LOW CERVICAL 09/20/2013 [id number] EXTRACTION OF POC, LOW CERVICAL, OPEN AP 09/02/2017 Results Test Result Range CULTURE, GENITAL - 02/18/17 17:58 CULTURE, GENITAL SEE NOTE NR SUREPATH PAP RFX HPV mRNA E6/E7 - 02/18/17 17:58 CLINICAL INFORMATION: NR LMP: NRG PREV. PAP: NRG PREV. BX: NRG SOURCE: NR STATEMENT OF ADEQUACY: NRG INTERPRETATION/RESULT: NR HOT POND OPERATOR: NRG INFECTION: NRG Complete urinalysis with reflex [...] culture - 07/31/17 14:00 Bacterial urine culture [id number] NRG COLONY COUNT 10,000/ML - 100,000/ML NRG [...] ABO+Rh group AP NRG Transfusion band number [id number] NRG Blood group antibody screen NEGATIVE NRG Complete blood count (CBC) with automated white blood cell (WBC) differential - 02/27/18 20:42 Blood leukocytes automated count (number/volume) 4.8 10*3/uL 4.3-11.0 Blood erythrocytes automated count (number/volume) 5.87 10*6/uL 4.35-5.85 Venous blood hemoglobin measurement (mass/volume) 16.3 g/dL 11.5-16.0 Blood hematocrit (volume fraction) 46 % 35-52 Automated erythrocyte mean corpuscular volume 78 [foz_us] 80-99 Automated erythrocyte mean corpuscular hemoglobin (mass per erythrocyte) 28 pg 25-34 Automated erythrocyte mean corpuscular hemoglobin concentration measurement ( mass/volume) 36 g/dL 32-36 Automated erythrocyte distribution width ratio 14.9 % 10.0-14.5 Automated blood platelet count (count/volume) 267 10*3/uL 130-400 Automated blood platelet mean volume measurement 10.0 [foz_us] 7.4-10.4 Automated blood neutrophils/100 leukocytes 63 % 42-75 Automated blood lymphocytes/100 leukocytes 27 % 12-44 Blood monocytes/100 leukocytes 9 % 0-12 Automated blood eosinophils/100 leukocytes 0 % 0-10 Automated blood basophils/100 leukocytes 0 % 0-10 Blood neutrophils automated count (number/volume) 3.0 10*3 1.8-7.8 Blood lymphocytes automated count (number/volume) 1.3 10*3 1.0-4.0 Blood monocytes automated count (number/volume) 0.4 10*3 0.0-1.0 Automated eosinophil count 0.0 10*3/uL 0.0-0.3 Automated blood basophil count (count/volume) 0.0 10*3/uL 0.0-0.1 Serum or plasma choriogonadotropin ( test) detection - 02/27/18 20:42 Serum or plasma choriogonadotropin ( test) detection NEGATIVE NEGATIVE Influenza virus A and B antigen detection - 02/27/18 20:42 FLU RESULT NEGATIVE FOR INFLUENZA A AND B ANTIGENS BY OK NR Comprehensive metabolic panel - 02/27/18 20:42 Serum or plasma sodium measurement (moles/volume) 140 mmol/L 135-145 Serum or plasma potassium measurement (moles/volume) 2.9 mmol/L 3.6-5.0 Serum or plasma chloride measurement (moles/volume) 104 mmol/L 98-107 Carbon dioxide 22 mmol/L 21-32 Serum or plasma anion gap determination (moles/volume) 14 mmol/L 5-14 Serum or plasma urea nitrogen measurement (mass/volume) 9 mg/dL 7-18 Serum or plasma creatinine measurement (mass/volume) 0.82 mg/dL 0.60-1.30 Serum or plasma urea nitrogen/creatinine mass ratio 11 NRG Serum or plasma creatinine measurement with calculation of estimated glomerular filtration rate > NRG Serum or plasma glucose measurement (mass/volume) 93 mg/dL 70-105 Serum or plasma calcium measurement (mass/volume) 9.7 mg/dL 8.5-10.1 Serum or plasma total bilirubin measurement (mass/volume) 1.1 mg/dL 0.1-1.0 Serum or plasma alkaline phosphatase measurement (enzymatic activity/volume) 120 U/L 40-136 Serum or plasma aspartate aminotransferase measurement (enzymatic activity/ volume) 19 U/L 5-34 Serum or plasma alanine aminotransferase measurement (enzymatic activity/volume ) 18 U/L 0-55 Serum or plasma protein measurement (mass/volume) 8.1 g/dL 6.4-8.2 Serum or plasma albumin measurement (mass/volume) 4.7 g/dL 3.2-4.5 Magnesium - 02/27/18 20:42 Magnesium 2.3 mg/dL 1.8-2.4 Complete blood count (CBC) with automated white blood cell (WBC) differential - 03/01/18 20:40 Blood leukocytes automated count (number/volume) 10.5 10*3/uL 4.3-11.0 Blood erythrocytes automated count (number/volume) 5.52 10*6/uL 4.35-5.85 Venous blood hemoglobin measurement (mass/volume) 15.2 g/dL 11.5-16.0 Blood hematocrit (volume fraction) 42 % 35-52 Automated erythrocyte mean corpuscular volume 77 [foz_us] 80-99 Automated erythrocyte mean corpuscular hemoglobin (mass per erythrocyte) 28 pg 25-34 Automated erythrocyte mean corpuscular hemoglobin concentration measurement ( mass/volume) 36 g/dL 32-36 Automated erythrocyte distribution width ratio 14.6 % 10.0-14.5 Automated blood platelet count (count/volume) 262 10*3/uL 130-400 Automated blood platelet mean volume measurement 10.0 [foz_us] 7.4-10.4 Automated blood neutrophils/100 leukocytes 80 % 42-75 Automated blood lymphocytes/100 leukocytes 12 % 12-44 Blood monocytes/100 leukocytes 9 % 0-12 Automated blood eosinophils/100 leukocytes 0 % 0-10 Automated blood basophils/100 leukocytes 0 % 0-10 Blood neutrophils automated count (number/volume) 8.3 10*3 1.8-7.8 Blood lymphocytes automated count (number/volume) 1.2 10*3 1.0-4.0 Blood monocytes automated count (number/volume) 0.9 10*3 0.0-1.0 Automated eosinophil count 0.0 10*3/uL 0.0-0.3 Automated blood basophil count (count/volume) 0.0 10*3/uL 0.0-0.1 Comprehensive metabolic panel - 03/01/18 20:40 Serum or plasma sodium measurement (moles/volume) 136 mmol/L 135-145 Serum or plasma potassium measurement (moles/volume) 2.8 mmol/L 3.6-5.0 Serum or plasma chloride measurement (moles/volume) 101 mmol/L 98-107 Carbon dioxide 20 mmol/L 21-32 Serum or plasma anion gap determination (moles/volume) 15 mmol/L 5-14 Serum or plasma urea nitrogen measurement (mass/volume) 7 mg/dL 7-18 Serum or plasma creatinine measurement (mass/volume) 0.85 mg/dL 0.60-1.30 Serum or plasma urea nitrogen/creatinine mass ratio 8 NRG Serum or plasma creatinine measurement with calculation of estimated glomerular filtration rate > NRG Serum or plasma glucose measurement (mass/volume) 92 mg/dL 70-105 Serum or plasma calcium measurement (mass/volume) 9.3 mg/dL 8.5-10.1 Serum or plasma total bilirubin measurement (mass/volume) 0.9 mg/dL 0.1-1.0 Serum or plasma alkaline phosphatase measurement (enzymatic activity/volume) 105 U/L 40-136 Serum or plasma aspartate aminotransferase measurement (enzymatic activity/ volume) 16 U/L 5-34 Serum or plasma alanine aminotransferase measurement (enzymatic activity/volume ) 19 U/L 0-55 Serum or plasma protein measurement (mass/volume) 7.9 g/dL 6.4-8.2 Serum or plasma albumin measurement (mass/volume) 4.4 g/dL 3.2-4.5 CALCIUM CORRECTED 9.0 mg/dL 8.5-10.1 Fibrin D-dimer FEU measurement in platelet poor plasma (mass/volume) - 20:40 Fibrin D-dimer FEU measurement in platelet poor plasma (mass/volume) 1.32 ug/mL 0.00-0.49 Blood lactic acid measurement (moles/volume) - 03/01/18 20:40 Blood lactic acid measurement (moles/volume) 1.21 mmol/L 0.50-2.00 Serum or plasma choriogonadotropin ( test) detection - 03/01/18 20:40 Serum or plasma choriogonadotropin ( test) detection NEGATIVE NEGATIVE Bacterial blood culture - 03/01/18 20:40 Bacterial blood culture NG [facility] Serum Mycoplasma pneumoniae antibody detection - 03/01/18 20:40 Pleural fluid Mycoplasma pneumoniae IgG antibody titer by immunofluorescence <1:16 Mycoplasma pneumoniae IgM ab [presence] in serum by immunofluorescence <1:10 <1:10 Myocardium ab pattern [interpretation] in serum See Below See Below Bacterial blood culture - 03/01/18 21:25 Bacterial blood culture NG NR Whole blood basic metabolic panel - 03/02/18 07:28 Serum or plasma sodium measurement (moles/volume) 137 mmol/L 135-145 Serum or plasma potassium measurement (moles/volume) 3.4 mmol/L 3.6-5.0 Serum or plasma chloride measurement (moles/volume) 108 mmol/L 98-107 Carbon dioxide 16 mmol/L 21-32 Serum or plasma anion gap determination (moles/volume) 13 mmol/L 5-14 Serum or plasma urea nitrogen measurement (mass/volume) 5 mg/dL 7-18 Serum or plasma creatinine measurement (mass/volume) 0.70 mg/dL 0.60-1.30 Serum or plasma urea nitrogen/creatinine mass ratio 7 NRG Serum or plasma creatinine measurement with calculation of estimated glomerular filtration rate > NRG Serum or plasma glucose measurement (mass/volume) 85 mg/dL 70-105 Serum or plasma calcium measurement (mass/volume) 8.5 mg/dL 8.5-10.1 Complete blood count (CBC) with automated white blood cell (WBC) differential - 03/04/18 05:35 Blood leukocytes automated count (number/volume) 8.2 10*3/uL 4.3-11.0 Blood erythrocytes automated count (number/volume) 4.65 10*6/uL 4.35-5.85 Venous blood hemoglobin measurement (mass/volume) 12.6 g/dL 11.5-16.0 Blood hematocrit (volume fraction) 36 % 35-52 Automated erythrocyte mean corpuscular volume 78 [foz_us] 80-99 Automated erythrocyte mean corpuscular hemoglobin (mass per erythrocyte) 27 pg 25-34 Automated erythrocyte mean corpuscular hemoglobin concentration measurement ( mass/volume) 35 g/dL 32-36 Automated erythrocyte distribution width ratio 14.6 % 10.0-14.5 Automated blood platelet count (count/volume) 245 10*3/uL 130-400 Automated blood platelet mean volume measurement 10.5 [foz_us] 7.4-10.4 Automated blood neutrophils/100 leukocytes 83 % 42-75 Automated blood lymphocytes/100 leukocytes 11 % 12-44 Blood monocytes/100 leukocytes 5 % 0-12 Automated blood eosinophils/100 leukocytes 0 % 0-10 Automated blood basophils/100 leukocytes 1 % 0-10 Blood neutrophils automated count (number/volume) 6.8 10*3 1.8-7.8 Blood lymphocytes automated count (number/volume) 0.9 10*3 1.0-4.0 Blood monocytes automated count (number/volume) 0.4 10*3 0.0-1.0 Automated eosinophil count 0.0 10*3/uL 0.0-0.3 Automated blood basophil count (count/volume) 0.0 10*3/uL 0.0-0.1 Comprehensive metabolic panel - 03/04/18 05:35 Serum or plasma sodium measurement (moles/volume) 142 mmol/L 135-145 Serum or plasma potassium measurement (moles/volume) 3.0 mmol/L 3.6-5.0 Serum or plasma chloride measurement (moles/volume) 108 mmol/L 98-107 Carbon dioxide 21 mmol/L 21-32 Serum or plasma anion gap determination (moles/volume) 13 mmol/L 5-14 Serum or plasma urea nitrogen measurement (mass/volume) 4 mg/dL 7-18 Serum or plasma creatinine measurement (mass/volume) 0.67 mg/dL 0.60-1.30 Serum or plasma urea nitrogen/creatinine mass ratio 6 NRG Serum or plasma creatinine measurement with calculation of estimated glomerular filtration rate > NRG Serum or plasma glucose measurement (mass/volume) 207 mg/dL 70-105 Serum or plasma calcium measurement (mass/volume) 9.4 mg/dL 8.5-10.1 Serum or plasma total bilirubin measurement (mass/volume) 0.3 mg/dL 0.1-1.0 Serum or plasma alkaline phosphatase measurement (enzymatic activity/volume) 92 U/L 40-136 Serum or plasma aspartate aminotransferase measurement (enzymatic activity/ volume) 11 U/L 5-34 Serum or plasma alanine aminotransferase measurement (enzymatic activity/volume ) 14 U/L 0-55 Serum or plasma protein measurement (mass/volume) 6.8 g/dL 6.4-8.2 Serum or plasma albumin measurement (mass/volume) 3.7 g/dL 3.2-4.5 CALCIUM CORRECTED 9.6 mg/dL 8.5-10.1 Encounters ACCT No. Visit Date/Time Discharge Status Pt. Type Provider Facility Loc./Unit Complaint [id number] 03/02/2018 00:35:00 03/04/2018 12:50:00 DIS Outpatient RUSS STYLES MD [facility] 4TH PNEUMONIA,HYPOKALEMIA [id number] 02/27/2018 18:21:00 02/27/2018 22:20:00 DIS Outpatient DARRON CANNON APRN [facility] ER FEVER 103.7/COUGH/VOMITING /DIARRHEA [id number] 09/02/2017 06:10:00 09/04/2017 11:55:00 DIS Inpatient TORO LOPEZ MD [facility] LDRP PREVIOUS [id number] 09/01/2017 11:08:00 09/01/2017 23:59:59 CLS Outpatient TORO LOPEZ MD [facility] LABT [id number] 08/28/2017 05:39:00 08/28/2017 14:38:00 DIS Outpatient TORO LOPEZ MD [facility] PREOP PREVIOUS C- SECTION [id number] 2017 11:13:00 2017 23:59:59 CLS Outpatient TORO LOPEZ MD [facility] LABNPT [id number] 08/17/2017 12:17:00 08/17/2017 23:59:59 CLS Outpatient TORO LOPEZ MD [facility] LABNPT [id number] 08/14/2017 15:14:00 08/14/2017 16:50:00 DIS Outpatient TORO LOPEZ MD [facility] ASSESS FOR PREECLAMPSIA [id number] 08/04/2017 12:44:00 08/04/2017 23:59:59 CLS Outpatient TORO LOPEZ MD [facility] LABNPT [id number] 07/31/2017 13:52:00 07/31/2017 16:05:00 DIS Outpatient TORO LOPEZ MD [facility] RULE OUT LABOR [id number] 02/24/2017 14:03:00 02/24/2017 23:59:59 CLS Outpatient KALEIGH NUÑEZ MD [facility] RAD DATES [id number] 09/09/2013 11:36:00 09/22/2013 12:20:00 DIS Inpatient TORO LOPEZ MD [facility] LDRP PRECLAMPSIA [id number] 08/30/2013 11:15:00 08/31/2013 09:50:00 DIS Inpatient TORO LOPEZ MD [facility] WS OB EVAL TO IN , CRAMPING, SWELLING,VOMITING [id number] 07/31/2013 09:31:00 07/31/2013 10:43:00 DIS [facility] [id number] 09/02/2013 10:40:00 Document Registration [id number] 02/18/2017 15:30:00 02/18/2017 23:59:59 CLS [facility] [id number] 02/18/2017 15:30:00 Document Registration
== END 2018-03-04 10:11 | disposition home or self-care (01) ==
LOC: EDUNIT# 20:22 → ER 20:23 → 4TH 20:24 → UNDOADMOB 23:23 → 4TH 03-02 00:35 → UNDODISOB 03-04 12:50
PROVIDERS: ADMIT Internal Medicine; ATTEND Internal Medicine
DX: J18.9 Pneumonia, unspecified organism (principal); R06.2 Wheezing; E86.0 Dehydration; R11.2 Nausea with vomiting, unspecified; Z79.899 Other long term (current) drug therapy; Z87.891 Personal history of nicotine dependence
CPT/HCPCS: 36415; 71045; 71275; 80048; 80053; 83605; 84703; 85025; 85379; 86738; 87040; 90471; 90686; 94640; 94760; 96361; 96365; G0378

== ENCOUNTER 2021-08-11 12:35 | Day surgery (SDC) | payer BC ==
[~2021-08-11] VITALS: Ht 167 cm; Wt 104.0 kg
[~2021-08-11 12:35] MED LIST changes: +AMOX1TAB12 PO; -FLUC200T5 PO; +FLUC200T9 PO; +FLUT1DIS28 IH; +LEVA1.2543 INH; +NORE0.3561 PO; -OXYC-465 PO; +OXYC-556 PO; +PRED10TA22 PO
[2021-08-11] MEDS ORDERED: CLINDAMYCIN 600 MG/4ML (CLEOCIN) VIAL IV STA (12:45)
[2021-08-11] MEDS ORDERED: fentaNYL INJ 100 MCG/2 ML AMP IVP STA (12:45)
[2021-08-11] MEDS ORDERED: LACTATED RINGERS 1,000 ML IV ONE (12:45)
[2021-08-11 13:00] LABS: BASOPHILS % (AUTO) 0 % (0-10); EOSINOPHILS # (AUTO) 0.1 10^3/uL (0.0-0.3); EOSINOPHILS % (AUTO) 1 % (0-10); HEMATOCRIT 44 % (35-52); HEMOGLOBIN 14.8 g/dL (11.5-16.0); LYMPHOCYTES # (AUTO) 2.9 10^3/uL (1.0-4.0); LYMPHOCYTES % (AUTO) 31 % (12-44); MEAN CORPUSCULAR HEMOGLOBIN 27 pg (25-34); MEAN CORPUSCULAR HGB CONC 34 g/dL (32-36); MEAN CORPUSCULAR VOLUME 80 fL (80-99); MEAN PLATELET VOLUME 9.6 fL (9.0-12.2); MONOCYTES # (AUTO) 0.7 10^3/uL (0.0-1.0); MONOCYTES % (AUTO) 8 % (0-12); NEUTROPHILS # (AUTO) 5.7 10^3/uL (1.8-7.8); NEUTROPHILS % (AUTO) 60 % (42-75); PLATELET COUNT 310 10^3/uL (130-400); WHITE BLOOD COUNT 9.4 10^3/uL (4.3-11.0)
[2021-08-11 13:15] LABS: ALBUMIN 4.1 GM/DL (3.2-4.5); INR 0.9 (0.8-1.4); PROTHROMBIN TIME PATIENT 12.2 SEC (12.2-14.7)
[2021-08-11 13:16] LABS: POTASSIUM 2.9 MMOL/L (3.6-5.0)
[2021-08-11 13:17] LABS: CALCIUM 9.4 MG/DL (8.5-10.1)
[2021-08-11 13:18] LABS: TOTAL PROTEIN 7.5 GM/DL (6.4-8.2)
[2021-08-11 13:20] LABS: BILIRUBIN,TOTAL 0.4 MG/DL (0.1-1.0)
[2021-08-11 13:22] LABS: CREATININE SERUM 0.82 MG/DL (0.60-1.30)
[2021-08-11] MEDS ORDERED: TETANUS,DIPTH,PERTUSS P/F (BOOSTRIX) 0.5 ML VIAL IM ONE (13:30)
--- NOTE | 2021-08-11 13:35 | Diagnostic Imaging Report ---
INDICATION: Laceration right upper extremity. Arm went through glass window. TECHNIQUE: 2 views of the right humerus CORRELATION STUDY: None FINDINGS: The humerus has an unremarkable appearance. The visualized portions of the shoulder and elbow are unremarkable. Rather prominent soft tissue defect at the level of the dorsal elbow. No definitive soft tissue foreign body. IMPRESSION: 1. Soft tissue defect at the level of the elbow. No radiographic evidence for foreign body or acute bony abnormality. Dictated by: Dictated on workstation # [id number]
--- NOTE | 2021-08-11 13:38 | Consultation - Surgery ---
History of Present Illness History of Present Illness Patient Consulted On(giovanni/time) 08/11/21 13:32 Time Seen by Provider: 13:10 History of Present Illness Surgery asked to consult regarding right upper arm laceration. HPI: pt is a 30 yo female who was out gardening and then when going back inside she caught her arm on the screen door latch; which caused her to swing her arm back and went right through the glass window. She stated it bled a lot and "there was a pinhole, that was just spurting out". "It stopped after they wrapped it up". She states it is still "pretty painful", a constant ache and rated it as a 6 out of 10. She states she at a Recombine around 10am. Allergies and Home Medications Allergies Coded Allergies: cefaclor (Unverified Allergy, Unknown, RASH, 08/14/17) rash, bruising Patient Home Medication List Home Medication List Reviewed: Yes Amoxicillin/Potassium Clav (Amox Tr-K Clv 875-125 mg Tab) 1 Each Tablet, 875 MG PO BID Prescribed by: DIANA LINCOLN on 03/04/18 1010 Fluticasone/Salmeterol (Advair 100-50 Diskus) 1 Each Blst.w.dev, 1 EACH IH BID Prescribed by: DIANA LINCOLN on 03/04/18 1011 Levalbuterol HCl (Levalbuterol HCl) 1.25 Mg/3 Ml Vial.neb, 1.25 MG INH RTQ4HR Prescribed by: DIANA LINCOLN on 03/04/18 1010 Norethindrone (Jencycla) 0.35 Mg Tablet, 0.35 MG PO HS, (Reported) Entered as Reported by: EGRALDO FONTENOT on 03/02/18 0935 Pnv No.122/Iron/Folic Acid ( Multi Tablet) 1 Each Tablet, 1 TAB PO DAILY, (Reported) Entered as Reported by: MAX ARAGON on 08/28/17 1422 Prednisone (Prednisone) 10 Mg Tab.ds.pk, 20 MG PO DAILY Prescribed by: DIANA LINCOLN on 03/04/18 1010 Past Nfsjeru-Veowrn-Fknnmq Hx Patient Social History Smoking Status: Former Smoker Former Smoker, Quit: Mar 02, 2012 Type Used: Cigarettes 2nd Hand Smoke Exposure: No Recent Hopitalizations: No Alcohol Use?: No Immunizations Up To Date Tetanus Booster (TDap): Unknown PED Vaccines UTD: Yes Seasonal Allergies Seasonal Allergies: No Surgeries History of Surgeries: Yes ( X2, PRE-ECLAMPSIA X2) Respiratory History of Respiratory Disorde: Yes ("bad allergies") Respiratory Disorders: Asthma Cardiovascular History of Cardiac Disorders: No Neurological History of Neurological Disord: No Reproductive System Hx Reproductive Disorders: No Sexually Transmitted Disease: No HIV/AIDS: No Female Reproductive Disorders: Denies Genitourinary History of Genitourinary Disor: No Gastrointestinal History of Gastrointestinal Di: No Musculoskeletal History of Musculoskeletal Dis: No Endocrine History of Endocrine Disorders: No HEENT History of HEENT Disorders: No Cancer History of Cancer: No Psychosocial History of Psychiatric Problem: No Integumentary History of Skin or Integumenta: No Blood Transfusions History of Blood Disorders: No Adverse Reaction to a Blood Tr: No Family Medical History Significant Family History: Heart Disease, Cancer, Hypertension Family Medial History: Cancer 19 FATHER (grandmother-breast cancer) 19 MOTHER (grandpa-pancreatic) Family history: Arthritis 19 MOTHER (grandmother) Family history: Breast disease 19 FATHER (breast cancer-paternal) Family history: Cardiovascular disease 19 MOTHER (grandpa bypass) Family history: Diabetes mellitus 19 FATHER (father) 19 MOTHER (mother) Family history: Gastrointestinal disease 19 MOTHER (great grandpa -diverticulitis) Family history: Glaucoma 19 MOTHER (grandmother) Family history: Hypertension 19 FATHER (father) Family history: Osteoporosis 19 MOTHER (great grandmother) Family history: Thyroid disorder 19 MOTHER (mother) Headache 19 MOTHER (grandmother and mom) Heart disease 19 FATHER (father) Hypercholesterolemia 19 MOTHER (mom) Myocardial infarction 19 FATHER (father) Review of Systems-General Constitutional: No chills, No diaphoresis, No fever EENTM: No blurred vision, No double vision, No mouth pain, No mouth swelling, No epistaxis Respiratory: No cough, No dyspnea on exertion, No short of breath, No other (has not had an asthma attack "in a while") Cardiovascular: No chest pain, No edema Gastrointestinal: abdominal pain ("gas pains this morning, but they went away"); No nausea, No vomiting Genitourinary: No dysuria, No frequency, No hematuria Musculoskeletal: No joint pain, No joint swelling, No muscle pain, No muscle stiffness Skin: No change in color, No change in hair/nails Psychiatric/Neurological: Denies Anxiety, Denies Depressed, Denies Seizure, Denies Tremors Physical Exam-General Problems Physical Exam Vital Signs Capillary Refill : General Appearance: WD/WN, mild distress (secondary to pain) Eyes: Bilateral Eye PERRL, Bilateral Eye EOMI HEENT: pharynx normal; No scleral icterus (R), No scleral icterus (L) Neck: non-tender, full range of motion, supple Respiratory: chest non-tender, lungs clear, normal breath sounds, no respiratory distress, no accessory muscle use Cardiovascular: regular rate, rhythm, no murmur Gastrointestinal: non tender, soft, no organomegaly Back: no vertebral tenderness Extremities: no pedal edema, no calf tenderness, normal capillary refill, other (pt has a large 8-10cm laceration to posterior upper right arm (triceps area), s till oozing minimal blood and at least 3cm deep (although some of this may be more of undermining) appears to go in a diagonal direction, not straight down) Neurologic/Psychiatric: cerner analyst II-XII nml as tested, no motor/sensory deficits, alert, normal mood/affect, oriented x 3 Skin: normal color, warm/dry Lymphatic: no adenopathy (neck, axilla or groin) Data Review Labs Laboratory Tests 08/11/21 12:42: White Blood Count 9.4, Red Blood Count 5.46H, Hemoglobin 14.8, Hematocrit 44, Mean Corpuscular Volume 80, Mean Corpuscular Hemoglobin 27, Mean Corpuscular Hemoglobin Concent 34, Red Cell Distribution Width 13.7, Platelet Count 310, Me an Platelet Volume 9.6, Immature Granulocyte % (Auto) 0, Neutrophils (%) (Auto) 60, Lymphocytes (%) (Auto) 31, Monocytes (%) (Auto) 8, Eosinophils (%) (Auto) 1, Basophils (%) (Auto) 0, Neutrophils # (Auto) 5.7, Lymphocytes # (Auto) 2.9, Monocytes # (Auto) 0.7, Eosinophils # (Auto) 0.1, Basophils # (Auto) 0.0, Immature Granulocyte # (Auto) 0.0, Prothrombin Time 12.2, INR Comment 0.9, Activated Partial Thromboplast Time 23L, Sodium Level 140, Potassium Level 2.9L, Chloride Level 106, Carbon Dioxide Level 18L, Anion Gap 16H, Blood Urea Nitrogen 11, Creatinine 0.82, Estimat Glomerular Filtration Rate 98, BUN/Creatinine Ratio 13, Glucose Level 123H, Calcium Level 9.4, Corrected Calcium 9.3, Total Bilirubin 0.4, Aspartate Amino Transf (AST/SGOT) 13, Alanine Aminotransferase (ALT/SGPT) 17, Alkaline Phosphatase 84, Total Protein 7.5, Albumin 4.1, Serum Test, Qualitative NEGATIVE Radiology Preliminary reading is no fracture and no foreign body, I reviewed myself and agree with this. Assessment/Plan Assessment/Plan Assessment/Plan Laceration Right upper arm I had a discussion with pt and went over her options; 1) she can go home and try and clean herself with IV ABX and pain meds 2) we could take her to OR now and washout, debride and close 3) we could wait until 6 pm, which is 8 hours after she ate. She states she is in pain and it is still oozing, she definitely does not want to go home. I think this is right on the line of an emergency, but we can probably do it now as long as she understands there will be increased risk of vomiting stomach contents and then aspiration. She does and would like to do it now; I think this is reasonable plan and discussed this with HAND DRAWER IN HELPER. Will get consent for right arm wound exploration, washout, possible debridement and closure. I also marked the right arm. Will then send her home after recovery with pain meds and ABX. All questions answered to pt and her husbands satisfaction. GENI ANSARI DO August 11, 2021 13:38
[2021-08-11] MEDS ORDERED: ACHD5005 PO (13:49)
[2021-08-11] MEDS ORDERED: AMOX500C2 PO (13:49)
--- NOTE | 2021-08-11 13:51 | Discharge Inst-Surgical ---
Discharge Inst-Surgical Depart Medication/Instructions New, Converted or Re-Newed RX: Transmitted to Pharmacy Patient Instructions Follow up Appt: Make appointment for 1 week. [phone] Instructions: No lifting greater than 20 pounds. No strenuous activity. May shower in 24 hours, no tub bath or soaking. Use incentive spirometer at home as directed. No Smoking Skin/Wound Care: May remove bandages in am. You need to leave the Dermabond on incision it will fall off on it's own. Symptoms to Report: Appetite Changes, Extremity Discoloration, Numbness/Tingling, Swelling Increased, Bleeding Excessive, Eyesight Changes, Pain Increased, Urine Color Change, Constipation(Persistent), Fever over 101 degree F, Pain/Pressure in chest, Urinating Difficulty, Cough Up/Vomit Blood, Heart Beat Irreg/Pounding, Pain/Pressure in jaw, Cramps in feet or legs, Lightheadedness, Pain/Pressure in shoulder, Diarrhea(Persistent), Memory Changes Suddenly, Questions/Concerns, Weight gain consecutive days, Dizziness/Fainting, Nausea/Vomiting, Shortness of Breath, Weight gain over 2 pounds If questions or concerns contact your physician Or seek help at emergency department. Activity Activity as Tolerated: Yes Activity Instructions: Avoid Stress to Incision Diet Discharge Diet: No Restrictions Diet After 24 Hours: Clear Liquid if Nauseous If Any Problems/Questions/Issu: Contact Your Physician, Go to Emergency Room Skin/Wound Care Infection Signs and Symptoms: Increased Redness, Foul Odor of Wound, Increased Drainage, Skin Itchy or Has a Rash, Increased Swelling, Temperature Above 101 F Bathing Instructions: Shower Stitches/Sanjana/Dermabond Dis: Care of GENI Thomas DO August 11, 2021 13:50
[2021-08-11] MEDS ORDERED: proPOfol 200 MG/20 ML (DIPRIVAN) VIAL IV ONE (14:04)
[2021-08-11] MEDS ORDERED: MIDAZOLAM 2 MG/2 ML (VERSED) VIAL ONE (14:04)
[2021-08-11] MEDS ORDERED: fentaNYL INJ 100 MCG/2 ML AMP ONE (14:04)
[2021-08-11] MEDS ORDERED: LIDOCAINE PF 2% 5 ML (XYLOCAINE) VIAL ONE (14:04)
[2021-08-11] MEDS ORDERED: LACTATED RINGERS 1,000 ML IV PRN (14:15)
[2021-08-11] MEDS ORDERED: CLINDAMYCIN 600 MG/50 ML IVPB 50 ML IV ONE (14:20)
[2021-08-11] MEDS ORDERED: ONDANSETRON 4 MG/2 ML (SDV) Z0FRAN ONE (14:42)
[2021-08-11] MEDS ORDERED: SUCCINYLCHOLINE INJ 100 MG/5 ML SYR/VIAL ONE (14:46)
[2021-08-11 15:09] VITALS: BP 155/86
[2021-08-11 15:19] VITALS: BP 151/87
--- NOTE | 2021-08-11 15:19 | Progress Note-Post Operative ---
Post-Operative Progess Note Surgeon (s)/Enterprise Architect (s) Surgeon GENI ANSARI DO Enterprise Architect: none Pre-Operative Diagnosis Right arm laceration Post-Operative Diagnosis same down to fascia/tendon near elbow Procedure & Operative Findings Date of Procedure 08/11/21 Procedure Performed/Findings Washout and complex closure of wound Closed fascia/tendon Closure of skin 9 x 2cm long Anesthesia Type GET Estimated Blood Loss Estimated blood loss (mL): scant Specimens/Packing Specimens Removed none GENI ANSARI DO August 11, 2021 15:19
[2021-08-11 15:29] VITALS: BP 140/95
[2021-08-11] MEDS ORDERED: ONDANSETRON 4 MG/2 ML (SDV) Z0FRAN IVP PRN (15:30)
[2021-08-11] MEDS ORDERED: morphine INJ 10 MG/ML 1ML (SYR OR VIAL) IVP ONE (15:30)
[2021-08-11] MEDS ORDERED: fentaNYL INJ 100 MCG/2 ML AMP IVP ONE (15:30)
--- NOTE | 2021-08-11 15:30 | Anesthesia-General Post-Op ---
General Patient Condition Mental Status/LOC: Same as Preop Cardiovascular: Satisfactory Nausea/Vomiting: Absent Respiratory: Satisfactory Pain: Controlled Complications: Absent Post Op Complications Complications None Follow Up Care/Instructions Patient Instructions None needed. Anesthesia/Patient Condition Patient Condition Patient is doing well, no complaints, stable vital signs, no apparent adverse anesthesia problems. No complications reported per nursing. DONTE ARNETT CRNA August 11, 2021 15:30
[2021-08-11 15:39] VITALS: BP 143/93
--- NOTE | 2021-08-12 00:51 | OPERATIVE REPORT ---
DATE OF SERVICE: 08/11/2021 PREOPERATIVE DIAGNOSIS: Right arm laceration. POSTOPERATIVE DIAGNOSIS: Right arm laceration down to fascia/tendon near the elbow. PROCEDURES: 1. Washout and complex closure of wounds. 2. Closure of fascia and tendon. 3. Closure of skin 9 x 2 cm long, kind of a hook or hockey type closure because of the laceration. SURGEON: Julio C Vences DO NURSES DIRECTOR: None. ANESTHESIA: General endotracheal tube. SPECIMENS: None. BLOOD LOSS: Scant. FLUIDS: Per anesthesia. POSTOPERATIVE CONDITION: Stable. INDICATION FOR PROCEDURE: The patient is a 30-year-old female who accidentally ran her arm above the elbow into a glass window and caused a laceration. This laceration was deep measured 3.5 cm, but it was in a diagonal pattern down towards the elbow. X-ray showed no bony abnormality or retained foreign body. FINDINGS: The patient had a large laceration about 3.5 cm deep again in a diagonal direction, but it looked like it had lacerated through either the fascia over the muscle or tendon. PROCEDURE NOTE: After informed consent was obtained, the patient was brought to the operating room, placed on the operating table in supine position. She was sterilely prepped and draped in normal fashion, then used a pulse metalizing machine operator automatic to copiously wash out and debride the laceration. There was some bleeding. This was controlled with Bovie electrocautery, looked in, noted that there was fascia or tendon right near the elbow that was cut and could see muscle underneath this, closed this with 3-0 Vicryl, a horizontal mattress suture and then a [id number] suture to close this. This closed nicely, made sure there was no bleeding. At this point, then closed the skin, it was a hockey type incision. Laceration measuring 9 cm long x 2 cm kind of hook, closed with 5 vertical mattress suture and then about 7 or 8 simple sutures. Area was cleaned and dried. Dressings placed. The patient tolerated the procedure and transferred to recovery room in stable condition. Sponge, instrument and needle count correct at the end of the case. Job ID: [id number] DocumentID: [id number] Dictated Date: 08/11/2021 15:19:06 Adventure Education Teacher Date: 08/12/2021 00:51:03 Dictated By: JULIO C VENCES DO
--- NOTE | 2021-08-14 06:30 | ED Upper Extremity ---
General Chief Complaint: Laceration Stated Complaint: RT ARM LAC Nursing Triage Note: PT TO ED 2 PER W/C W/ C/O LACERATION TO RUE ONSET CRANBERRY GROWER. TOURNIQUET PRESENTLY IN PLACE PER EMS. PT REPORTS EMS WAS ON SCENE BY REFUSED TRANSPORT AT THAT TIME. PT STATES WENT TO STOP HER GLASS DOOR ET HER ARM HIT IT CAUSING IT TO BREAK. PT HAS 8.5CM X3CM LAC TO RUE. NO ACTIVE BLEEDING NOTED AFTER TOURNIQUET REMOVAL. PT A/OX3, DENIES HITTING HEAD. SMALL SUPERFICIAL LACERATIONS NOTED TO RFA. NO OTHER C/O VOICED. Source: patient History of Present Illness Date Seen by Provider: August 11, 2021 Time Seen by Provider: 12:38 Initial Comments PT ARRIVES VIA POV FROM HOME C/O LACERATION TO RIGHT UPPER ARM STATES SHE HIT HER ARM ON A SCREEN DOOR AND THEN TRIED TO CATCH IT AND HER RIGHT ARM WENT THROUGH THE GLASS PART OF THE DOOR OCCURRED AROUND NOON CALLED EMS TO SCENE, AND TOURNIQUET WAS PLACED BY THEM, THEN PT REFUSED EMS TR ANSPORT AND CAME BY POV. NO BLEEDING NOTED AT THIS TIME, WITH TOURNIQUET IN PLACE NO OTHER INJURIES NO PARESTHESIAS OR MOTOR DEFICITS. PT IS RIGHT HANDED NO PRIOR INJURIES OR PROBLEMS WITH THIS ARM. NO CHRONIC ILLNESSES LAST TETANUS IS UNKNOWN LAST ATE AT 10 AM. LMP 3-4 WEEKS AGO. NORMAL. ON OCP'S PCP: HITESH MIGUEL Allergies and Home Medications Allergies Coded Allergies: cefaclor (Unverified Allergy, Unknown, RASH, 08/14/17) rash, bruising Patient Home Medication List Home Medication List Reviewed: Yes Amoxicillin (Amoxicillin) 500 Mg Capsule, 500 MG PO TID Prescribed by: GENI ANSARI on 08/11/21 1349 Fluticasone/Salmeterol (Advair 100-50 Diskus) 1 Each Blst.w.dev, 1 EACH IH BID Prescribed by: DIANA LINCOLN on 03/04/18 1011 Hydrocodone Bit/Acetaminophen (HYDROcodone/APAP 5 MG/325 MG TAB) 1 Tab Tab, 1 TAB PO Q8H PRN for PAIN-MODERATE (5-7) Prescribed by: GENI ANSARI on 08/11/21 1350 Levalbuterol HCl (Levalbuterol HCl) 1.25 Mg/3 Ml Vial.neb, 1.25 MG INH RTQ4HR Prescribed by: DIANA LINCOLN on 03/04/18 1010 Norethindrone (Jencycla) 0.35 Mg Tablet, 0.35 MG PO HS, (Reported) Entered as Reported by: GERALDO FONTENOT on 03/02/18 0935 Pnv No.122/Iron/Folic Acid ( Multi Tablet) 1 Each Tablet, 1 TAB PO DAILY, (Reported) Entered as Reported by: MAX ARAGON on 08/28/17 1422 Prednisone (Prednisone) 10 Mg Tab.ds.pk, 20 MG PO DAILY Prescribed by: DIANA LINCOLN on 03/04/18 1010 Discontinued Medications Amoxicillin/Potassium Clav (Amox Tr-K Clv 875-125 mg Tab) 1 Each Tablet, 875 MG PO BID Prescribed by: DIANA LINCOLN on 03/04/18 1010 Review of Systems Constitutional: no symptoms reported Respiratory: no symptoms reported Cardiovascular: no symptoms reported Gastrointestinal: no symptoms reported Genitourinary: no symptoms reported : No Control/STD Prophylaxis: BC Pills Musculoskeletal: see HPI Skin: see HPI Psychiatric/Neurological: No Symptoms Reported Past Pwnjemz-Gyjwic-Wbgmcy Hx Patient Social History Smoking Status: Former Smoker Alcohol Use?: No Immunizations Up To Date Tetanus Booster (TDap): Unknown PED Vaccines UTD: Yes Seasonal Allergies Seasonal Allergies: No Past Medical History Surgeries: Yes ( X2, PRE-ECLAMPSIA X2) Respiratory: Yes ("bad allergies") Asthma Cardiac: No Neurological: No Reproductive Disorders: No Female Reproductive Disorders: Denies Sexually Transmitted Disease: No HIV/AIDS: No Genitourinary: No Gastrointestinal: No Musculoskeletal: No Endocrine: No HEENT: No Cancer: No Psychosocial: No Integumentary: No Blood Disorders: No Adverse Reaction/Blood Tranf: No Family Medical History Cancer 19 FATHER (grandmother-breast cancer) 19 MOTHER (grandpa-pancreatic) Family history: Arthritis 19 MOTHER (grandmother) Family history: Breast disease 19 FATHER (breast cancer-paternal) Family history: Cardiovascular disease 19 MOTHER (grandpa bypass) Family history: Diabetes mellitus 19 FATHER (father) 19 MOTHER (mother) Family history: Gastrointestinal disease 19 MOTHER (great grandpa -diverticulitis) Family history: Glaucoma 19 MOTHER (grandmother) Family history: Hypertension 19 FATHER (father) Family history: Osteoporosis 19 MOTHER (great grandmother) Family history: Thyroid disorder 19 MOTHER (mother) Headache 19 MOTHER (grandmother and mom) Heart disease 19 FATHER (father) Hypercholesterolemia 19 MOTHER (mom) Myocardial infarction 19 FATHER (father) No Family History of: Abdominal aortic aneurysm Marietta's disease Alcoholism Aphasia Cancer of colon Cataract Chest pain Congenital heart disease Congestive heart failure Cystic fibrosis Dementia Dysphagia Family history: Allergy Family history: Alzheimer's disease Family history: Asthma Family history: Coronary thrombosis Hearing loss Hereditary disease History of - anemia History of - disorder History of drug abuse Human immunodeficiency virus (HIV) seropositivity Infertile Kidney disease Malignant neoplasm of lung Parkinson's disease Prostate cancer Psychotic disorder Seizure disorder Stroke Tuberculosis Visual impairment Heart Disease, Cancer, Hypertension Physical Exam Vital Signs Vital Signs - First Documented 08/11/21 12:35 Temp 36.1 Pulse 141 Resp 20 B/P (MAP) 156/99 (118) Pulse Ox 97 O2 Delivery Room Air Capillary Refill : Less Than 3 SecondsLess Than 3 Seconds Height, Weight, BMI Height: 5'5.00" Weight: 204lbs. 0.0oz. [id number]; 37.00 BMI Method:Stated General Appearance: WD/WN, no apparent distress, other (ANIXOUS) Cardiovascular: normal peripheral pulses, regular rate, rhythm, no murmur Respiratory: normal breath sounds Shoulder: normal inspection Elbow/Forearm: Right (POSTERIOR/LATERAL ASPECT OF RIGHT UPPER ARM WITH LARGE, GAPING LACERATION--20 LONG X 9 CM WIDE. MILD OOZING OF BLOOD WITH REMOVAL OF TOURNIQUET.. WOUND IS VERY DEEP AND IS INTO MUSCLE BED. UNABLE TO COMPLETELY DETERMINE THE EXTENT OF INJURY AT THIS TIME, DUE TO DEPTH OF THE LACERATION. NO OBVIOUS FOREIGN BODY PRESENT. MINOR ABRASIONS TO RIGHT FOREARM. ), pain, soft tissue tenderness Wrist: Yes normal inspection Hand: normal inspection Neurologic/Tendon: normal sensation, normal motor functions, normal tendon functions Neurologic/Psychiatric: auto polisher II-XII nml as tested, no motor/sensory deficits, alert, oriented x 3 Skin: normal color, warm/dry Progress/Results/Core Measures Results/Orders Blood Pressure Mean: 110 Progress Progress Note : Progress Note GIVEN DPT VACCINE GIVEN IV ANTIBIOTICS GIVEN PAIN MEDICATION NO DETERIORATION IN PT'S CONDITION DURING ER STAY Diagnostic Imaging Comments XRAYS RIGHT HUMERUS--PER RADIOLOGIST REPORT AT 1341 FINDINGS: The humerus has an unremarkable appearance. The visualized portions of the shoulder and elbow are unremarkable. Rather prominent soft tissue defect at the level of the dorsal elbow. No definitive soft tissue foreign body. IMPRESSION: 1. Soft tissue defect at the level of the elbow. No radiographic evidence for foreign body or acute bony abnormality. Reviewed: Reviewed by Me Departure Communication (Admissions) 1247--SPOKE WITH DR. ANSARI, TRAUMA SURGEON, WILL BE DOWN TO SEE PT 1305--DR. ANSARI HERE 1320--PT WILL BE GOING TO SURGERY 1407--SURGERY CREW HERE TO TAKE PT TO OR. Impression Primary Impression: COMPLEX LACERATION OF RIGHT UPPER ARM Additional Impression: Dntnldtxei-qoqylkwrz-yrdanod (DPT) vaccination administered at current visit Disposition: ADMITTED INPATIENT (TO OR) Condition: Stable Admissions Decision to Admit Reason: Admit from ER (Trauma) (TO SURGERY ) Decision to Admit/Date: August 11, 2021 Time/Decision to Admit Time: 13:20 Departure-Patient Inst. Referrals: NO,LOCAL PHYSICIAN (PCP) Primary Care Physician Patient Instructions: How to Prevent Surgical Site Infections, Surgical Wound (DC), Laceration Repair With Stitches (DC) Scripts Amoxicillin (Amoxicillin) 500 Mg Capsule 500 MG PO TID, #20 CAP Prov: GENI ANSARI DO 08/11/21 Hydrocodone Bit/Acetaminophen (HYDROcodone/APAP 5 MG/325 MG TAB) 1 Tab Tab 1 TAB PO Q8H PRN for PAIN-MODERATE (5-7), #20 TAB Prov: GENI ANSARI DO 08/11/21 Images Extremities-Upper 1 - LACERATION BHUPINDER NAM DO August 14, 2021 06:30
== END 2021-08-11 16:28 | disposition home or self-care (01) ==
LOC: EDUNIT# 12:38 → ER 12:39 → SDC 13:26
PROVIDERS: ATTEND Surgery
DX: S56.821A Laceration of other muscles, fascia and tendons at forearm level, right arm, initial encounter (principal)
CPT/HCPCS: 12015; 36415; 73060; 80053; 84703; 85025; 85610; 85730; 90715